=== PATIENT | female | born 1945 | race African-American/Black ===

== ENCOUNTER 2017-08-21 12:32 | Inpatient (IN) | payer OTHER ==
[2017-08-21 13:39] LABS: ADD MAN DIFF? NO
[2017-08-21 13:44] LABS: BASO # 0.1 x10^3/uL (0.0-0.2); BASO % 1 % (0-3); EOS # 0.3 x10^3/uL (0.0-0.7); EOS % 3 % (0-3); HEMATOCRIT 25.8 % (36.0-47.0); HEMOGLOBIN 8.5 g/dL (12.0-15.5); LYMPH # 3.4 x10^3/uL (1.0-4.8); LYMPH % 31 % (24-48); MEAN CORPUSCULAR HEMOGLOBIN 26 pg (25-35); MEAN CORPUSCULAR HGB CONC 33 g/dL (31-37); MEAN CORPUSCULAR VOLUME 79 fL (79-100); MONO # 0.6 x10^3/uL (0.0-1.1); MONO % 6 % (0-9); NEUT # 6.6 x10^3uL (1.8-7.7); NEUT % 60 % (31-73); PLATELET COUNT 466 x10^3/uL (140-400); RED BLOOD COUNT 3.25 x10^6/uL (3.50-5.40); RED CELL DISTRIBUTION WIDTH 15.1 % (11.5-14.5)
[2017-08-21] MEDS: VANCOMYCIN PER PHARMACY MC ×2 (13:45→21:20)
[2017-08-21 13:50] LABS: ANION GAP 4 (6-14); BLOOD UREA NITROGEN 20 mg/dL (7-20); BUN/CREATININE RATIO 15 (6-20); CALCIUM 9.3 mg/dL (8.5-10.1); CARBON DIOXIDE 28 mmol/L (21-32); CHLORIDE 102 mmol/L (98-107); CREATININE 1.3 mg/dL (0.6-1.0); GFR 48.4; GLUCOSE 234 mg/dL (70-99); SODIUM 134 mmol/L (136-145)
[2017-08-21 13:56] LABS: ALBUMIN 1.9 g/dL (3.4-5.0); ALBUMIN/GLOBULIN RATIO 0.3 (1.0-1.7); ALK PHOS 117 U/L (46-116); ALT (SGPT) 11 U/L (14-59); AST (SGOT) 11 U/L (15-37); TOTAL BILIRUBIN 0.2 mg/dL (0.2-1.0); TOTAL PROTEIN 8.9 g/dL (6.4-8.2)
[2017-08-21 13:59] LABS: LACTIC ACID 0.6 mmol/L (0.4-2.0)
[2017-08-21] MEDS ORDERED: CEFEPIME HCL 2 GM in IV DEXTROSE 5% 100 ML IV (14:00)
[2017-08-21] MEDS ORDERED: fentaNYL PF VIAL 100 MCG/2 ML VIAL IV (14:15)
[2017-08-21] MEDS: CEFEPIME HCL IV Push 2 GM VIAL. IVP ×2 (14:16→21:34)
[2017-08-21] MEDS: VANCOMYCIN 2 GM in IV 1/2 NORMAL SALINE 500 ML IV (14:17)
[2017-08-21] MEDS: hydrALAZINE 20 MG/ML VIAL. IVP (18:24)
[2017-08-21] MEDS: IV NORMAL SALINE 1000ML BAG 1,000 ML IV (21:04)
[2017-08-22 00:30] LABS: BILIRUBIN,URINE NEGATIVE (NEG); CLARITY,URINE CLEAR; COLOR,URINE YELLOW; GLUCOSE,URINE 500 mg/dL (NEG); NITRITE,URINE NEGATIVE (NEG); PH,URINE 7.5; PROTEIN,URINE 100 mg/dL (NEG-TRACE); UROBILINOGEN,URINE 0.2 mg/dL (0.2 mg/dL)
[2017-08-22 00:38] LABS: BACTERIA,URINE MODERATE /HPF (0-FEW); WBC,URINE >40 /HPF (0-4)
[2017-08-22 00:39] LABS: SQUAMOUS EPITHELIAL CELL,UR FEW /LPF
[2017-08-22] MEDS: hydrALAZINE 20 MG/ML VIAL. IVP (04:46)
[2017-08-22 05:26] LABS: ADD MAN DIFF? NO
[2017-08-22 05:36] LABS: BASO # 0.1 x10^3/uL (0.0-0.2); BASO % 1 % (0-3); EOS # 0.3 x10^3/uL (0.0-0.7); EOS % 3 % (0-3); HEMATOCRIT 25.9 % (36.0-47.0); HEMOGLOBIN 8.5 g/dL (12.0-15.5); LYMPH # 1.6 x10^3/uL (1.0-4.8); LYMPH % 17 % (24-48); MEAN CORPUSCULAR HEMOGLOBIN 26 pg (25-35); MEAN CORPUSCULAR HGB CONC 33 g/dL (31-37); MEAN CORPUSCULAR VOLUME 80 fL (79-100); MONO # 0.6 x10^3/uL (0.0-1.1); MONO % 7 % (0-9); NEUT # 6.7 x10^3uL (1.8-7.7); NEUT % 72 % (31-73); PLATELET COUNT 456 x10^3/uL (140-400); RED BLOOD COUNT 3.25 x10^6/uL (3.50-5.40); RED CELL DISTRIBUTION WIDTH 15.1 % (11.5-14.5); WHITE BLOOD COUNT 9.3 x10^3/uL (4.0-11.0)
[2017-08-22] MEDS: CEFEPIME HCL IV Push 2 GM VIAL. IVP (06:19)
[2017-08-22 06:50] LABS: ALBUMIN 1.7 g/dL (3.4-5.0); ALBUMIN/GLOBULIN RATIO 0.3 (1.0-1.7); ALK PHOS 108 U/L (46-116); ALT (SGPT) 9 U/L (14-59); ANION GAP 7 (6-14); AST (SGOT) 11 U/L (15-37); BLOOD UREA NITROGEN 18 mg/dL (7-20); BUN/CREATININE RATIO 15 (6-20); CALCIUM 8.4 mg/dL (8.5-10.1); CARBON DIOXIDE 26 mmol/L (21-32); CHLORIDE 102 mmol/L (98-107); CREATININE 1.2 mg/dL (0.6-1.0); GFR 53.1; GLUCOSE 222 mg/dL (70-99); POTASSIUM 3.8 mmol/L (3.5-5.1); SODIUM 135 mmol/L (136-145); TOTAL BILIRUBIN 0.3 mg/dL (0.2-1.0); TOTAL PROTEIN 8.3 g/dL (6.4-8.2)
[2017-08-22 08:02] LABS: POC GLUCOSE 204 mg/dL (70-99)
[2017-08-22] MEDS: ONDANSETRON PF 4 MG/2 ML VIAL. IV (08:30)
[2017-08-22] MEDS: IV NORMAL SALINE 1000ML BAG 1,000 ML IV ×2 (08:43→17:00)
[2017-08-22] MEDS: ENOXAPARIN 40 MG/0.4 ML SYRINGE. SQ (08:44)
[2017-08-22] MEDS: INSULIN LISPRO 300 UNITS/3 ML INSULN.PEN. SQ ×3 (08:44→17:00)
[2017-08-22 12:01] LABS: POC GLUCOSE 224 mg/dL (70-99)
[2017-08-22] MEDS: PIPERACILLIN/TAZOBACTAM 3.375 GM in IV NORMAL SALINE 50ML 50 ML IV ×2 (13:09→20:38)
[2017-08-22] MEDS ORDERED: MORPHINE SULFATE 4 MG/ML DISP.SYRIN. IV ×2 (13:15→18:45)
[2017-08-22] MEDS ORDERED: PROCHLORPERAZINE 10 MG/2 ML VIAL. IV (13:15)
[2017-08-22] MEDS ORDERED: LIDOCAINE 1% PF 2 ML VIAL. ID (13:15)
[2017-08-22] MEDS ORDERED: fentaNYL PF VIAL 100 MCG/2 ML VIAL IV (13:15)
[2017-08-22] MEDS ORDERED: ONDANSETRON PF 4 MG/2 ML VIAL. IV ×2 (13:15→15:00)
[2017-08-22 13:31] LABS: POC GLUCOSE 186 mg/dL (70-99)
[2017-08-22] MEDS ORDERED: LIDOCAINE 2% PF Vial for OR 5 ML VIAL. (13:36)
[2017-08-22] MEDS ORDERED: fentaNYL PF VIAL 100 MCG/2 ML VIAL (13:36)
[2017-08-22] MEDS ORDERED: PROPOFOL 20 ML IV (13:36)
[2017-08-22] MEDS: VANCOMYCIN 1.5 GM in IV 1/2 NORMAL SALINE 500 ML IV (14:01)
[2017-08-22] MEDS ORDERED: DOCUSATE SODIUM 100 MG CAPSULE. PO (15:00)
[2017-08-22] MEDS ORDERED: traMADol 50 MG TABLET PO (15:00)
[2017-08-22] MEDS ORDERED: MORPHINE SULFATE 2 MG/ML DISP.SYRIN. IV ×2 (15:00→18:45)
[2017-08-22] MEDS ORDERED: SEVOFLURANE 31 TO 60 MINUTES. IH (15:07)
[2017-08-22] MEDS ORDERED: PHENYLEPHRINE in 0.9% NACL PF 1 MG/10 ML SYRINGE. IV (15:26)
[2017-08-22] MEDS: amLODIPine BESYLATE 5 MG TABLET PO (16:00)
[2017-08-22 16:35] LABS: PLATELET COUNT 374 x10^3/uL (140-400); WHITE BLOOD COUNT 10.7 x10^3/uL (4.0-11.0)
[2017-08-22 16:38] LABS: HEMATOCRIT 19.7 % (36.0-47.0); HEMOGLOBIN 6.5 g/dL (12.0-15.5)
[2017-08-22 16:50] LABS: POC GLUCOSE 186 mg/dL (70-99)
[2017-08-22] MEDS: IV RINGERS,LACTATED 1000ML 1,000 ML IV (16:52)
[2017-08-22] MEDS: fentaNYL PF VIAL 100 MCG/2 ML VIAL IV ×2 (16:56→18:05)
[2017-08-22] MEDS: GLIMEPIRIDE 2 MG TABLET. PO (17:00)
[2017-08-22] MEDS: VANCOMYCIN PER PHARMACY MC (18:02)
[2017-08-22] MEDS ORDERED: HYDROcodone/APAP 10/325 1 TAB TABLET PO ×2 (18:45)
[2017-08-22] MEDS: MORPHINE SULFATE 4 MG/ML DISP.SYRIN. IV (20:38)
[2017-08-22 20:53] LABS: POC GLUCOSE 219 mg/dL (70-99)
[2017-08-22] MEDS: LACTOBACILLUS RHAMNOSUS GG 1 CAPSULE. PO (21:00)
[2017-08-22 23:42] LABS: IMMEDIATE SPIN CROSSMATCH 1 3
[2017-08-23] MEDS: IV NORMAL SALINE 1000ML BAG 1,000 ML IV ×3 (03:00→20:58)
[2017-08-23] MEDS: PIPERACILLIN/TAZOBACTAM 3.375 GM in IV NORMAL SALINE 50ML 50 ML IV ×3 (04:07→23:27)
[2017-08-23 04:37] LABS: ADD MAN DIFF? NO
[2017-08-23 04:46] LABS: BASO # 0.1 x10^3/uL (0.0-0.2); BASO % 1 % (0-3); EOS # 0.2 x10^3/uL (0.0-0.7); EOS % 2 % (0-3); HEMATOCRIT 25.4 % (36.0-47.0); HEMOGLOBIN 8.3 g/dL (12.0-15.5); LYMPH # 1.6 x10^3/uL (1.0-4.8); LYMPH % 13 % (24-48); MEAN CORPUSCULAR HEMOGLOBIN 27 pg (25-35); MEAN CORPUSCULAR HGB CONC 33 g/dL (31-37); MEAN CORPUSCULAR VOLUME 82 fL (79-100); MONO # 0.6 x10^3/uL (0.0-1.1); MONO % 5 % (0-9); NEUT # 9.6 x10^3uL (1.8-7.7); NEUT % 79 % (31-73); PLATELET COUNT 334 x10^3/uL (140-400); RED BLOOD COUNT 3.09 x10^6/uL (3.50-5.40); RED CELL DISTRIBUTION WIDTH 15.4 % (11.5-14.5); WHITE BLOOD COUNT 12.2 x10^3/uL (4.0-11.0)
[2017-08-23 04:53] LABS: ANION GAP 11 (6-14); BLOOD UREA NITROGEN 16 mg/dL (7-20); CALCIUM 8.3 mg/dL (8.5-10.1); CARBON DIOXIDE 23 mmol/L (21-32); CHLORIDE 103 mmol/L (98-107); CREATININE 1.2 mg/dL (0.6-1.0); GFR 53.1; GLUCOSE 221 mg/dL (70-99); POTASSIUM 4.3 mmol/L (3.5-5.1); SODIUM 137 mmol/L (136-145)
[2017-08-23 06:18] LABS: POC GLUCOSE 225 mg/dL (70-99)
[2017-08-23] MEDS: GLIMEPIRIDE 2 MG TABLET. PO ×3 (08:00→17:00)
[2017-08-23 08:09] LABS: POC GLUCOSE 203 mg/dL (70-99)
[2017-08-23] MEDS: LACTOBACILLUS RHAMNOSUS GG 1 CAPSULE. PO ×3 (09:00→21:00)
[2017-08-23] MEDS: amLODIPine BESYLATE 5 MG TABLET PO ×2 (09:00→12:50)
[2017-08-23] MEDS: ASPIRIN CHEWABLE 81 MG TABLET. PO ×2 (09:00→12:50)
[2017-08-23] MEDS: INSULIN LISPRO 300 UNITS/3 ML INSULN.PEN. SQ ×3 (09:02→17:00)
[2017-08-23] MEDS ORDERED: LIDOCAINE WITH 8.4% SOD BICARB 3 ML DISP.SYRIN. (10:25)
[2017-08-23] MEDS: AMOXICILLIN/K CLAV 875/125MG TABLET. PO ×2 (11:00→12:50)
[2017-08-23] MEDS: LIDOCAINE WITH 8.4% SOD BICARB 3 ML DISP.SYRIN. INJ (11:11)
[2017-08-23 11:40] LABS: POC GLUCOSE 199 mg/dL (70-99)
[2017-08-23] MEDS: ENOXAPARIN 40 MG/0.4 ML SYRINGE. SQ (12:51)
[2017-08-23 16:57] LABS: POC GLUCOSE 155 mg/dL (70-99)
[2017-08-23] MEDS: MORPHINE SULFATE 4 MG/ML DISP.SYRIN. IV (17:33)
[2017-08-23 22:25] LABS: POC GLUCOSE 140 mg/dL (70-99)
[2017-08-24 01:16] LABS: HEMOGLOBIN A1C 9.3 % (4.8-5.6)
[2017-08-24] MEDS: hydrALAZINE 20 MG/ML VIAL. IVP (04:16)
[2017-08-24] MEDS: PIPERACILLIN/TAZOBACTAM 3.375 GM in IV NORMAL SALINE 50ML 50 ML IV ×4 (05:45→23:07)
[2017-08-24 07:48] LABS: POC GLUCOSE 160 mg/dL (70-99)
[2017-08-24] MEDS: GLIMEPIRIDE 2 MG TABLET. PO (08:00)
[2017-08-24] MEDS: INSULIN LISPRO 300 UNITS/3 ML INSULN.PEN. SQ ×3 (08:00→17:00)
[2017-08-24] MEDS: IV NORMAL SALINE 1000ML BAG 1,000 ML IV ×2 (08:53→23:07)
[2017-08-24] MEDS: LACTOBACILLUS RHAMNOSUS GG 1 CAPSULE. PO ×2 (09:00→19:56)
[2017-08-24] MEDS: ASPIRIN CHEWABLE 81 MG TABLET. PO (09:00)
[2017-08-24] MEDS: ENOXAPARIN 40 MG/0.4 ML SYRINGE. SQ (09:00)
[2017-08-24] MEDS: amLODIPine BESYLATE 10 MG TABLET PO (09:00)
[2017-08-24 10:14] LABS: ADD MAN DIFF? NO
[2017-08-24 10:26] LABS: BASO # 0.1 x10^3/uL (0.0-0.2); BASO % 1 % (0-3); EOS # 0.3 x10^3/uL (0.0-0.7); EOS % 3 % (0-3); HEMATOCRIT 21.1 % (36.0-47.0); LYMPH % 19 % (24-48); MEAN CORPUSCULAR HEMOGLOBIN 27 pg (25-35); MEAN CORPUSCULAR HGB CONC 33 g/dL (31-37); MEAN CORPUSCULAR VOLUME 82 fL (79-100); MONO # 0.8 x10^3/uL (0.0-1.1); MONO % 7 % (0-9); NEUT # 7.2 x10^3uL (1.8-7.7); NEUT % 69 % (31-73); PLATELET COUNT 312 x10^3/uL (140-400); RED BLOOD COUNT 2.57 x10^6/uL (3.50-5.40); RED CELL DISTRIBUTION WIDTH 15.6 % (11.5-14.5); WHITE BLOOD COUNT 10.4 x10^3/uL (4.0-11.0)
[2017-08-24 10:40] LABS: ALBUMIN 1.6 g/dL (3.4-5.0); ALBUMIN/GLOBULIN RATIO 0.3 (1.0-1.7); ALK PHOS 85 U/L (46-116); ALT (SGPT) 8 U/L (14-59); ANION GAP 6 (6-14); AST (SGOT) 13 U/L (15-37); BLOOD UREA NITROGEN 11 mg/dL (7-20); BUN/CREATININE RATIO 8 (6-20); CALCIUM 8.2 mg/dL (8.5-10.1); CARBON DIOXIDE 27 mmol/L (21-32); CHLORIDE 105 mmol/L (98-107); CREATININE 1.3 mg/dL (0.6-1.0); GFR 48.4; GLUCOSE 162 mg/dL (70-99); POTASSIUM 3.4 mmol/L (3.5-5.1); SODIUM 138 mmol/L (136-145); TOTAL BILIRUBIN 0.4 mg/dL (0.2-1.0); TOTAL PROTEIN 7.3 g/dL (6.4-8.2)
[2017-08-24 11:44] LABS: POC GLUCOSE 153 mg/dL (70-99)
[2017-08-24 12:19] LABS: ALBUM 2.1 g/dL (2.9-4.4); ALPHA 1 0.3 g/dL (0.0-0.4); ALPHA 2 1.1 g/dL (0.4-1.0); BETA 1.2 g/dL (0.7-1.3); GAMMA 2.7 g/dL (0.4-1.8); M-SPIKE Not Observed g/dL (Not Observed); PROTEIN TOTAL 7.4 g/dL (6.0-8.5); SPEP AG RATIO 0.4 (0.7-1.7)
[2017-08-24 14:40] LABS: THYROID STIM HORMONE (TSH) 1.099 uIU/mL (0.358-3.74)
[2017-08-24 14:42] LABS: VITAMIN-B12 595 pg/mL (247-911)
[2017-08-24 16:10] LABS: POC GLUCOSE 139 mg/dL (70-99)
[2017-08-24] MEDS: CALCIUM CARBONATE 500 MG TABLET PO (17:00)
[2017-08-24] MEDS: CHOLECALCIFEROL (VITAMIN D3) 5,000 UNIT CAPSULE PO (17:44)
[2017-08-24 20:13] LABS: BARBITURATES NEG (NEG); BENZODIAZEPINES NEG (NEG); CANNABINOIDS NEG (NEG); COCAINE NEG (NEG); METHADONE NEG (NEG); OPIATES NEG (NEG); PHENCYCLIDINE NEG (NEG)
[2017-08-24 20:16] LABS: AMPHETAMINE/METHAMPHETAMINE NEG (NEG)
[2017-08-24 20:17] LABS: ETHANOL, URINE NEG (NEG)
[2017-08-24 20:53] LABS: POC GLUCOSE 128 mg/dL (70-99)
[2017-08-25] MEDS: PIPERACILLIN/TAZOBACTAM 3.375 GM in IV NORMAL SALINE 50ML 50 ML IV (05:04)
[2017-08-25 06:37] LABS: ADD MAN DIFF? NO
[2017-08-25 06:57] LABS: ANION GAP 9 (6-14); BASO # 0.1 x10^3/uL (0.0-0.2); BASO % 1 % (0-3); BLOOD UREA NITROGEN 10 mg/dL (7-20); CARBON DIOXIDE 27 mmol/L (21-32); CHLORIDE 107 mmol/L (98-107); CREATININE 1.2 mg/dL (0.6-1.0); EOS # 0.3 x10^3/uL (0.0-0.7); EOS % 4 % (0-3); GFR 53.1; GLUCOSE 136 mg/dL (70-99); LYMPH # 1.8 x10^3/uL (1.0-4.8); LYMPH % 22 % (24-48); MEAN CORPUSCULAR HEMOGLOBIN 28 pg (25-35); MEAN CORPUSCULAR HGB CONC 34 g/dL (31-37); MEAN CORPUSCULAR VOLUME 82 fL (79-100); MONO # 0.8 x10^3/uL (0.0-1.1); MONO % 9 % (0-9); NEUT # 5.3 x10^3uL (1.8-7.7); NEUT % 64 % (31-73); PLATELET COUNT 307 x10^3/uL (140-400); POTASSIUM 3.3 mmol/L (3.5-5.1); RED BLOOD COUNT 2.34 x10^6/uL (3.50-5.40); RED CELL DISTRIBUTION WIDTH 15.6 % (11.5-14.5); SODIUM 143 mmol/L (136-145); WHITE BLOOD COUNT 8.3 x10^3/uL (4.0-11.0)
[2017-08-25 07:02] LABS: CHOLESTEROL 145 mg/dL (0-200); HDLC 45 mg/dL (40-60); LDLC 86 mg/dL (0-100); NON-HDL CHOLESTEROL 100 mg/dL (0-129); TRIGLYCERIDES 70 mg/dL (0-150); VLDLC 14 mg/dL (0-40)
[2017-08-25 07:04] LABS: CHOLESTEROL/HDL RATIO 3.2
[2017-08-25 07:16] LABS: HEMATOCRIT 19.2 % (36.0-47.0); HEMOGLOBIN 6.4 g/dL (12.0-15.5)
[2017-08-25] MEDS: INSULIN LISPRO 300 UNITS/3 ML INSULN.PEN. SQ ×3 (08:00→17:00)
[2017-08-25 08:37] LABS: POC GLUCOSE 132 mg/dL (70-99)
[2017-08-25] MEDS: ASPIRIN CHEWABLE 81 MG TABLET. PO (09:00)
[2017-08-25] MEDS: ENOXAPARIN 40 MG/0.4 ML SYRINGE. SQ (09:00)
[2017-08-25] MEDS: AMOXICILLIN/K CLAV 875/125MG TABLET. PO ×2 (09:01→21:28)
[2017-08-25] MEDS: LACTOBACILLUS RHAMNOSUS GG 1 CAPSULE. PO ×2 (09:01→21:28)
[2017-08-25] MEDS: CHOLECALCIFEROL (VITAMIN D3) 5,000 UNIT CAPSULE PO (09:01)
[2017-08-25] MEDS: CALCIUM CARBONATE 500 MG TABLET PO (09:01)
[2017-08-25] MEDS: amLODIPine BESYLATE 10 MG TABLET PO (09:01)
[2017-08-25] MEDS: hydrALAZINE 20 MG/ML VIAL. IVP (09:03)
[2017-08-25] MEDS: POTASSIUM CHLORIDE 20 MEQ TABLET.ER. PO (09:16)
[2017-08-25 11:53] LABS: POC GLUCOSE 213 mg/dL (70-99)
[2017-08-25 16:44] LABS: POC GLUCOSE 210 mg/dL (70-99)
[2017-08-26 05:48] LABS: ADD MAN DIFF? NO
[2017-08-26 05:57] LABS: BASO # 0.1 x10^3/uL (0.0-0.2); BASO % 1 % (0-3); EOS # 0.3 x10^3/uL (0.0-0.7); EOS % 3 % (0-3); HEMATOCRIT 23.3 % (36.0-47.0); HEMOGLOBIN 7.7 g/dL (12.0-15.5); LYMPH # 1.8 x10^3/uL (1.0-4.8); LYMPH % 19 % (24-48); MEAN CORPUSCULAR HEMOGLOBIN 28 pg (25-35); MEAN CORPUSCULAR HGB CONC 33 g/dL (31-37); MEAN CORPUSCULAR VOLUME 84 fL (79-100); MONO # 0.9 x10^3/uL (0.0-1.1); MONO % 9 % (0-9); NEUT # 6.6 x10^3uL (1.8-7.7); NEUT % 68 % (31-73); PLATELET COUNT 323 x10^3/uL (140-400); RED BLOOD COUNT 2.77 x10^6/uL (3.50-5.40); RED CELL DISTRIBUTION WIDTH 15.9 % (11.5-14.5); WHITE BLOOD COUNT 9.7 x10^3/uL (4.0-11.0)
[2017-08-26 06:28] LABS: BLOOD UREA NITROGEN 17 mg/dL (7-20); CALCIUM 8.4 mg/dL (8.5-10.1); CARBON DIOXIDE 28 mmol/L (21-32); CHLORIDE 104 mmol/L (98-107); CREATININE 1.5 mg/dL (0.6-1.0); GFR 41.1; GLUCOSE 218 mg/dL (70-99); POTASSIUM 3.7 mmol/L (3.5-5.1)
[2017-08-26 06:42] LABS: ANION GAP 5 (6-14); SODIUM 137 mmol/L (136-145)
[2017-08-26 07:14] LABS: POC GLUCOSE 256 mg/dL (70-99)
[2017-08-26 07:28] LABS: POC GLUCOSE 194 mg/dL (70-99)
[2017-08-26] MEDS: AMOXICILLIN/K CLAV 875/125MG TABLET. PO ×2 (08:50→21:17)
[2017-08-26] MEDS: CHOLECALCIFEROL (VITAMIN D3) 5,000 UNIT CAPSULE PO (08:50)
[2017-08-26] MEDS: ASPIRIN CHEWABLE 81 MG TABLET. PO (08:50)
[2017-08-26] MEDS: CALCIUM CARBONATE 500 MG TABLET PO (08:50)
[2017-08-26] MEDS: amLODIPine BESYLATE 10 MG TABLET PO (08:51)
[2017-08-26] MEDS: LACTOBACILLUS RHAMNOSUS GG 1 CAPSULE. PO ×2 (08:51→21:17)
[2017-08-26] MEDS: INSULIN LISPRO 300 UNITS/3 ML INSULN.PEN. SQ ×3 (08:53→16:50)
[2017-08-26] MEDS: ENOXAPARIN 40 MG/0.4 ML SYRINGE. SQ (08:59)
[2017-08-26] MEDS: hydrALAZINE 20 MG/ML VIAL. IVP (09:02)
[2017-08-26] MEDS: GLIMEPIRIDE 2 MG TABLET. PO (10:46)
[2017-08-26 11:19] LABS: POC GLUCOSE 178 mg/dL (70-99)
[2017-08-26 16:49] LABS: POC GLUCOSE 105 mg/dL (70-99)
[2017-08-26] MEDS: CARVEDILOL 6.25 MG TABLET. PO (16:57)
[2017-08-26 21:20] LABS: POC GLUCOSE 133 mg/dL (70-99)
[2017-08-27 03:44] LABS: ADD MAN DIFF? NO
[2017-08-27 04:11] LABS: BASO % 1 % (0-3); EOS # 0.4 x10^3/uL (0.0-0.7); EOS % 4 % (0-3); HEMATOCRIT 22.3 % (36.0-47.0); HEMOGLOBIN 7.6 g/dL (12.0-15.5); LYMPH % 22 % (24-48); MEAN CORPUSCULAR HEMOGLOBIN 29 pg (25-35); MEAN CORPUSCULAR HGB CONC 34 g/dL (31-37); MEAN CORPUSCULAR VOLUME 84 fL (79-100); MONO # 0.8 x10^3/uL (0.0-1.1); MONO % 8 % (0-9); NEUT # 5.9 x10^3uL (1.8-7.7); NEUT % 64 % (31-73); PLATELET COUNT 327 x10^3/uL (140-400); RED BLOOD COUNT 2.64 x10^6/uL (3.50-5.40); RED CELL DISTRIBUTION WIDTH 16.2 % (11.5-14.5); WHITE BLOOD COUNT 9.1 x10^3/uL (4.0-11.0)
[2017-08-27 04:21] LABS: ANION GAP 7 (6-14); BLOOD UREA NITROGEN 15 mg/dL (7-20); CALCIUM 8.6 mg/dL (8.5-10.1); CARBON DIOXIDE 27 mmol/L (21-32); CHLORIDE 102 mmol/L (98-107); CREATININE 1.6 mg/dL (0.6-1.0); GFR 38.1; GLUCOSE 103 mg/dL (70-99); POTASSIUM 3.7 mmol/L (3.5-5.1); SODIUM 136 mmol/L (136-145)
[2017-08-27] MEDS: ACETAMINOPHEN 325 MG TABLET. PO (04:56)
[2017-08-27] MEDS: INSULIN LISPRO 300 UNITS/3 ML INSULN.PEN. SQ ×3 (08:00→17:00)
[2017-08-27 08:12] LABS: POC GLUCOSE 84 mg/dL (70-99)
[2017-08-27] MEDS: LACTOBACILLUS RHAMNOSUS GG 1 CAPSULE. PO ×2 (10:13→20:07)
[2017-08-27] MEDS: amLODIPine BESYLATE 10 MG TABLET PO (10:13)
[2017-08-27] MEDS: ASPIRIN CHEWABLE 81 MG TABLET. PO (10:13)
[2017-08-27] MEDS: CHOLECALCIFEROL (VITAMIN D3) 5,000 UNIT CAPSULE PO (10:13)
[2017-08-27] MEDS: GLIMEPIRIDE 2 MG TABLET. PO (10:13)
[2017-08-27] MEDS: AMOXICILLIN/K CLAV 875/125MG TABLET. PO (10:13)
[2017-08-27] MEDS: CALCIUM CARBONATE 500 MG TABLET PO (10:13)
[2017-08-27] MEDS: CARVEDILOL 6.25 MG TABLET. PO ×2 (10:14→17:00)
[2017-08-27] MEDS: ENOXAPARIN 40 MG/0.4 ML SYRINGE. SQ (10:14)
[2017-08-27 11:18] LABS: POC GLUCOSE 88 mg/dL (70-99)
[2017-08-27] MEDS: PIPERACILLIN/TAZOBACTAM 2.25 GM in IV NORMAL SALINE 50ML 50 ML IV ×2 (13:55→17:52)
[2017-08-27] MEDS: AMINO AC 3%/ELECTROLYTE/GLYCER 1,000 ML IV (13:56)
[2017-08-27 17:19] LABS: POC GLUCOSE 94 mg/dL (70-99)
[2017-08-27 21:12] LABS: POC GLUCOSE 84 mg/dL (70-99)
[2017-08-28] MEDS: PIPERACILLIN/TAZOBACTAM 2.25 GM in IV NORMAL SALINE 50ML 50 ML IV ×4 (00:11→18:09)
[2017-08-28 01:11] LABS: POC GLUCOSE 65 mg/dL (70-99)
[2017-08-28] MEDS: DEXTROSE 50% 25 GM / 50ML DISP.SYRIN. IV ×2 (01:16→07:32)
[2017-08-28 01:32] LABS: POC GLUCOSE 113 mg/dL (70-99)
[2017-08-28 02:53] LABS: POC GLUCOSE 84 mg/dL (70-99)
[2017-08-28 04:56] LABS: POC GLUCOSE 79 mg/dL (70-99)
[2017-08-28] MEDS ORDERED: VANCOMYCIN 1 GM in IV DEXTROSE 5% 250 ML IV (05:30)
[2017-08-28] MEDS: ACETAMINOPHEN 650 MG SUPP.RECT. PR (05:40)
[2017-08-28] MEDS: AMINO AC 3%/ELECTROLYTE/GLYCER 1,000 ML IV (05:45)
[2017-08-28] MEDS: FLUCONAZOLE 100MG/50ML PREMIX 50 ML IV (06:40)
[2017-08-28 06:42] LABS: POC GLUCOSE 70 mg/dL (70-99)
[2017-08-28] MEDS: VANCOMYCIN 2 GM in IV 1/2 NORMAL SALINE 500 ML IV (07:32)
[2017-08-28] MEDS: INSULIN LISPRO 300 UNITS/3 ML INSULN.PEN. SQ ×3 (08:00→18:11)
[2017-08-28] MEDS: CARVEDILOL 6.25 MG TABLET. PO ×2 (08:00→17:00)
[2017-08-28 08:05] LABS: POC GLUCOSE 123 mg/dL (70-99)
[2017-08-28] MEDS: LACTOBACILLUS RHAMNOSUS GG 1 CAPSULE. PO ×2 (08:57→19:41)
[2017-08-28] MEDS: amLODIPine BESYLATE 10 MG TABLET PO (08:57)
[2017-08-28] MEDS: CALCIUM CARBONATE 500 MG TABLET PO (08:57)
[2017-08-28] MEDS: ASPIRIN CHEWABLE 81 MG TABLET. PO (08:57)
[2017-08-28] MEDS: CHOLECALCIFEROL (VITAMIN D3) 5,000 UNIT CAPSULE PO (08:57)
[2017-08-28] MEDS: ENOXAPARIN 40 MG/0.4 ML SYRINGE. SQ (10:02)
[2017-08-28] MEDS: NYSTATIN TOPICAL POWDER 15GM BOTTLE. TP ×2 (10:02→21:00)
[2017-08-28 10:14] LABS: POC GLUCOSE 91 mg/dL (70-99)
[2017-08-28] MEDS: POTASSIUM CL 30MEQ D5-0.45NACL 1,000 ML IV (11:31)
[2017-08-28] MEDS: ERGOCALCIFEROL (VITAMIN D2) 50,000 UNIT CAPSULE. PO (11:32)
[2017-08-28] MEDS: MORPHINE SULFATE 4 MG/ML DISP.SYRIN. IV (11:36)
[2017-08-28] MEDS: IPRATRPIUM/ALBUTEROL 0.5/2.5MG 3 ML NEBU. NEB ×3 (12:00→19:59)
[2017-08-28 14:03] LABS: POC GLUCOSE 90 mg/dL (70-99)
[2017-08-28] MEDS: VANCOMYCIN PER PHARMACY MC ×3 (15:16→16:36)
[2017-08-28 18:27] LABS: POC GLUCOSE 100 mg/dL (70-99)
[2017-08-28 20:48] LABS: POC GLUCOSE 92 mg/dL (70-99)
[2017-08-29] MEDS: POTASSIUM CL 30MEQ D5-0.45NACL 1,000 ML IV (00:03)
[2017-08-29 01:34] LABS: POC GLUCOSE 101 mg/dL (70-99)
[2017-08-29 02:03] LABS: ADD MAN DIFF? NO
[2017-08-29 02:05] LABS: BASO % 0 % (0-3); EOS # 0.5 x10^3/uL (0.0-0.7); EOS % 5 % (0-3); HEMATOCRIT 21.5 % (36.0-47.0); HEMOGLOBIN 7.3 g/dL (12.0-15.5); LYMPH # 2.3 x10^3/uL (1.0-4.8); LYMPH % 23 % (24-48); MEAN CORPUSCULAR HEMOGLOBIN 28 pg (25-35); MEAN CORPUSCULAR HGB CONC 34 g/dL (31-37); MEAN CORPUSCULAR VOLUME 84 fL (79-100); MONO # 0.8 x10^3/uL (0.0-1.1); MONO % 8 % (0-9); NEUT # 6.6 x10^3uL (1.8-7.7); NEUT % 65 % (31-73); PLATELET COUNT 353 x10^3/uL (140-400); RED BLOOD COUNT 2.57 x10^6/uL (3.50-5.40); RED CELL DISTRIBUTION WIDTH 16.5 % (11.5-14.5); WHITE BLOOD COUNT 10.2 x10^3/uL (4.0-11.0)
[2017-08-29 02:24] LABS: CREATININE 1.4 mg/dL (0.6-1.0)
[2017-08-29 02:24] LABS: GFR 44.5
[2017-08-29 03:18] LABS: SEDIMENTATION RATE > 130 (0-25)
[2017-08-29] MEDS: PIPERACILLIN/TAZOBACTAM 2.25 GM in IV NORMAL SALINE 50ML 50 ML IV ×4 (05:18→18:16)
[2017-08-29 05:45] LABS: POC GLUCOSE 116 mg/dL (70-99)
[2017-08-29] MEDS: FLUCONAZOLE 100MG/50ML PREMIX 50 ML IV (06:14)
[2017-08-29] MEDS: IPRATRPIUM/ALBUTEROL 0.5/2.5MG 3 ML NEBU. NEB ×4 (07:31→19:49)
[2017-08-29] MEDS: VANCOMYCIN 1.25 GM in IV DEXTROSE 5 %-0.2 % NACL 250 ML IV (07:57)
[2017-08-29] MEDS: CARVEDILOL 6.25 MG TABLET. PO ×2 (07:59→18:17)
[2017-08-29] MEDS: INSULIN LISPRO 300 UNITS/3 ML INSULN.PEN. SQ ×2 (08:00→22:30)
[2017-08-29] MEDS: CALCIUM CARBONATE 500 MG TABLET PO (08:00)
[2017-08-29] MEDS: amLODIPine BESYLATE 10 MG TABLET PO (08:00)
[2017-08-29] MEDS: LACTOBACILLUS RHAMNOSUS GG 1 CAPSULE. PO ×2 (08:00→21:15)
[2017-08-29] MEDS: ASPIRIN CHEWABLE 81 MG TABLET. PO (08:00)
[2017-08-29] MEDS: NYSTATIN TOPICAL POWDER 15GM BOTTLE. TP ×2 (08:01→21:15)
[2017-08-29 09:20] LABS: POC GLUCOSE 150 mg/dL (70-99)
[2017-08-29] MEDS: methylPREDNISolone SOD SUCC PF 125 MG/2 ML VIAL. IV ×3 (09:52→21:15)
[2017-08-29] MEDS: ENOXAPARIN 30 MG/0.3 ML SYRINGE. SQ (09:57)
[2017-08-29] MEDS: BUDESONIDE 0.5 MG/2 ML NEBU. NEB ×2 (11:23→19:46)
[2017-08-29 12:06] LABS: POC GLUCOSE 152 mg/dL (70-99)
[2017-08-29] MEDS: PANTOPRAZOLE IV PUSH 40 MG VIAL. IVP (12:38)
[2017-08-29 16:59] LABS: POC GLUCOSE 267 mg/dL (70-99)
[2017-08-29] MEDS ORDERED: DEXTROSE 50% 25 GM / 50ML DISP.SYRIN. IV ×2 (22:00)
[2017-08-29 23:42] LABS: POC GLUCOSE 387 mg/dL (70-99)
[2017-08-30] MEDS: hydrALAZINE 20 MG/ML VIAL. IVP (00:09)
[2017-08-30] MEDS: PIPERACILLIN/TAZOBACTAM 2.25 GM in IV NORMAL SALINE 50ML 50 ML IV ×5 (00:09→23:56)
[2017-08-30 01:50] LABS: POC GLUCOSE 446 mg/dL (70-99)
[2017-08-30 04:48] LABS: HEMATOCRIT 22.5 % (36.0-47.0); HEMOGLOBIN 7.8 g/dL (12.0-15.5); MEAN CORPUSCULAR HGB CONC 34 g/dL (31-37)
[2017-08-30 05:31] LABS: CREATININE 1.9 mg/dL (0.6-1.0)
[2017-08-30 05:31] LABS: GFR 31.3
[2017-08-30] MEDS: methylPREDNISolone SOD SUCC PF 125 MG/2 ML VIAL. IV ×3 (05:31→21:01)
[2017-08-30] MEDS: FLUCONAZOLE 100MG/50ML PREMIX 50 ML IV (05:31)
[2017-08-30] MEDS: BUDESONIDE 0.5 MG/2 ML NEBU. NEB ×2 (07:20→20:00)
[2017-08-30] MEDS: IPRATRPIUM/ALBUTEROL 0.5/2.5MG 3 ML NEBU. NEB ×4 (07:20→20:00)
[2017-08-30 07:30] LABS: POC GLUCOSE 327 mg/dL (70-99)
[2017-08-30] MEDS: PANTOPRAZOLE IV PUSH 40 MG VIAL. IVP (07:40)
[2017-08-30 08:01] LABS: VANC TR 18.7 mcg/mL (10.0-20.0)
[2017-08-30] MEDS: INSULIN LISPRO 300 UNITS/3 ML INSULN.PEN. SQ ×5 (08:15→17:19)
[2017-08-30] MEDS: VANCOMYCIN PER PHARMACY MC (08:17)
[2017-08-30] MEDS: NYSTATIN TOPICAL POWDER 15GM BOTTLE. TP ×3 (09:00→21:00)
[2017-08-30] MEDS ORDERED: VANCOMYCIN 1 GM in IV 1/2 NORMAL SALINE 250 ML IV (09:00)
[2017-08-30] MEDS: LACTOBACILLUS RHAMNOSUS GG 1 CAPSULE. PO ×2 (09:10→21:01)
[2017-08-30] MEDS: amLODIPine BESYLATE 10 MG TABLET PO (09:10)
[2017-08-30] MEDS: ASPIRIN CHEWABLE 81 MG TABLET. PO (09:10)
[2017-08-30] MEDS: CALCIUM CARBONATE 500 MG TABLET PO (09:11)
[2017-08-30] MEDS: CARVEDILOL 6.25 MG TABLET. PO ×2 (09:12→17:15)
[2017-08-30] MEDS: ENOXAPARIN 30 MG/0.3 ML SYRINGE. SQ (09:13)
[2017-08-30 10:20] LABS: ANION GAP 7 (6-14); BLOOD UREA NITROGEN 23 mg/dL (7-20); CARBON DIOXIDE 27 mmol/L (21-32); CHLORIDE 102 mmol/L (98-107); CREATININE 1.8 mg/dL (0.6-1.0); GFR 33.3; POTASSIUM 3.8 mmol/L (3.5-5.1); SODIUM 136 mmol/L (136-145)
[2017-08-30 11:11] LABS: POC GLUCOSE 376 mg/dL (70-99)
[2017-08-30] MEDS ORDERED: DEXTROSE 50% 25 GM / 50ML DISP.SYRIN. IV (11:30)
[2017-08-30 16:58] LABS: POC GLUCOSE 353 mg/dL (70-99)
[2017-08-30] MEDS ORDERED: GLIMEPIRIDE 2 MG TABLET. PO (17:00)
[2017-08-30 20:42] LABS: POC GLUCOSE 338 mg/dL (70-99)
[2017-08-30] MEDS: INSULIN GLARGINE 300 UNITS/3 ML INSULN.PEN. SQ (21:07)
[2017-08-31] MEDS: PIPERACILLIN/TAZOBACTAM 2.25 GM in IV NORMAL SALINE 50ML 50 ML IV ×3 (05:54→18:00)
[2017-08-31] MEDS: methylPREDNISolone SOD SUCC PF 125 MG/2 ML VIAL. IV (05:54)
[2017-08-31] MEDS: HEPARIN PF for SUB-Q USE 5,000 UNIT/0.5 ML VIAL. SQ ×2 (06:03→15:39)
[2017-08-31 06:26] LABS: CREATININE 1.9 mg/dL (0.6-1.0)
[2017-08-31 06:26] LABS: GFR 31.3
[2017-08-31] MEDS: IPRATRPIUM/ALBUTEROL 0.5/2.5MG 3 ML NEBU. NEB ×3 (07:22→15:15)
[2017-08-31] MEDS: BUDESONIDE 0.5 MG/2 ML NEBU. NEB (07:22)
[2017-08-31 08:01] LABS: POC GLUCOSE 318 mg/dL (70-99)
[2017-08-31] MEDS: ASPIRIN CHEWABLE 81 MG TABLET. PO (08:43)
[2017-08-31] MEDS: PANTOPRAZOLE IV PUSH 40 MG VIAL. IVP (08:43)
[2017-08-31] MEDS: LACTOBACILLUS RHAMNOSUS GG 1 CAPSULE. PO (08:44)
[2017-08-31] MEDS: CALCIUM CARBONATE 500 MG TABLET PO (08:44)
[2017-08-31] MEDS: CARVEDILOL 6.25 MG TABLET. PO ×2 (08:44→17:12)
[2017-08-31] MEDS: amLODIPine BESYLATE 10 MG TABLET PO (08:44)
[2017-08-31] MEDS: NYSTATIN TOPICAL POWDER 15GM BOTTLE. TP (08:46)
[2017-08-31] MEDS: INSULIN LISPRO 300 UNITS/3 ML INSULN.PEN. SQ ×6 (08:57→17:28)
[2017-08-31] MEDS ORDERED: CALAMINE/ZINC OXIDE TOPICAL SUSPENSION 177ML BOTTLE. TP (10:15)
[2017-08-31 11:48] LABS: POC GLUCOSE 310 mg/dL (70-99)
[2017-08-31] MEDS: predniSONE 20 MG TABLET PO (11:49)
[2017-08-31 17:20] LABS: POC GLUCOSE 215 mg/dL (70-99)
== END 2017-08-31 18:55 | DRG 616 ==
LOC: ER 12:32 → 5 SOUTH 14:28
PROC: 0Y6J0Z1 Detachment at Left Lower Leg, High, Open Approach (ICD-10-PCS; principal; 2017-08-22 14:00)
PROC: 02HV33Z Insertion of Infusion Device into Superior Vena Cava, Percutaneous Approach (ICD-10-PCS; 2017-08-22 14:49)
PROC: B5181ZA Fluoroscopy of Superior Vena Cava using Low Osmolar Contrast, Guidance (ICD-10-PCS; 2017-08-22 14:49)
PROC: B548ZZA Ultrasonography of Superior Vena Cava, Guidance (ICD-10-PCS; 2017-08-22 14:49)
PROC: 30233N1 Transfusion of Nonautologous Red Blood Cells into Peripheral Vein, Percutaneous Approach (ICD-10-PCS; 2017-08-22 14:49)
DX: E11.69 Type 2 diabetes mellitus with other specified complication (principal); J69.0 Pneumonitis due to inhalation of food and vomit; J96.90 Respiratory failure, unspecified, unspecified whether with hypoxia or hypercapnia; G93.41 Metabolic encephalopathy; N17.9 Acute kidney failure, unspecified; M86.172 Other acute osteomyelitis, left ankle and foot; I69.354 Hemiplegia and hemiparesis following cerebral infarction affecting left non-dominant side; N39.0 Urinary tract infection, site not specified; D64.9 Anemia, unspecified; E11.22 Type 2 diabetes mellitus with diabetic chronic kidney disease; E11.51 Type 2 diabetes mellitus with diabetic peripheral angiopathy without gangrene; E11.621 Type 2 diabetes mellitus with foot ulcer; Z88.8 Allergy status to other drugs, medicaments and biological substances; E11.649 Type 2 diabetes mellitus with hypoglycemia without coma; E11.65 Type 2 diabetes mellitus with hyperglycemia; E87.6 Hypokalemia; F01.50 Vascular dementia, unspecified severity, without behavioral disturbance, psychotic disturbance, mood disturbance, and anxiety; L89.529 Pressure ulcer of left ankle, unspecified stage; I12.9 Hypertensive chronic kidney disease with stage 1 through stage 4 chronic kidney disease, or unspecified chronic kidney disease; I77.1 Stricture of artery; J98.01 Acute bronchospasm; N18.3 Chronic kidney disease, stage 3 (moderate); Z74.01 Bed confinement status; Z79.4 Long term (current) use of insulin; Z83.3 Family history of diabetes mellitus; Z89.411 Acquired absence of right great toe; Z89.422 Acquired absence of other left toe(s)
CPT/HCPCS: 36415; 36569; 70450; 70551; 71045; 71250; 73630; 76770; 76937; 77001; 80048; 80051; 80053; 80061; 80202; 80307; 81001; 82306; 82565; 82607; 82962; 83036; 83605; 84165; 84443; 84520; 85014; 85018; 85025; 85027; 85651; 86850; 86900; 86901; 86920; 87040; 87086; 92526-GN; 92610-GN; 93926; 94640; 94760; 96365; 96366; 96375; 97110-GP; 97163-GP; 97166-GO; 97530-GP; 97535-GO; 99285; 99285-25; A7015; C1751; C1892; C9113; J0360; J0690; J0692; J1450; J1650; J1815; J2270; J2370; J2405; J2543; J2704; J2930; J3010; J3370; J7030; J7040; J7042; J7120; J7512; J7620; J7626; P9016

== ENCOUNTER → 2017-08-21 | Outpatient (CLI) | payer OTHER | END | disposition home or self-care (01) | LOC: PMGWOUND 11:32 | DX: E11.621 Type 2 diabetes mellitus with foot ulcer (principal); L97.521 Non-pressure chronic ulcer of other part of left foot limited to breakdown of skin; I70.202 Unspecified atherosclerosis of native arteries of extremities, left leg; E78.00 Pure hypercholesterolemia, unspecified; F32.9 Major depressive disorder, single episode, unspecified; I10 Essential (primary) hypertension; L84 Corns and callosities; G81.94 Hemiplegia, unspecified affecting left nondominant side; Z86.73 Personal history of transient ischemic attack (TIA), and cerebral infarction without residual deficits; Z79.82 Long term (current) use of aspirin | CPT/HCPCS: 99214 ==

== ENCOUNTER 2018-05-02 21:16 | Emergency (ER) | payer OTHER ==
[~2018-05-02] VITALS: Ht 170.2 cm; Wt 81.2 kg
[~2018-05-02 21:16] MED LIST: ACET325T9 PO; AMLO10TA6 PO; ASCO-185 PO; ASPI-612 PO; ASPI81TA59 PO; BUDE0.5A NEB; BUDE0.5A3 NEB; CALC500T PO; CARV6.2511 PO; CHOL100013 PO; CYAN10005 PO; DOCU-109 PO; ERGO500027 PO; FERR325T14 PO; FOLI1TAB16 PO; GLIM4TAB2 PO; HYDR-2769 PO; INSU100C SQ; INSU100I13 SQ; IPRA3AMP29 NEB; LACT1CAP21 PO; METF500T16 PO; PANT20TA2 PO; [UNRECOGNIZED DRUG - CODE] TP
--- NOTE | 2018-05-02 21:48 | PHYS DOC ---
Past Medical History Past Medical History: CVA, Diabetes-Type II, Hypertension Past Surgical History: Other Additional Past Surgical Histo: LL APUTATION Alcohol Use: None Drug Use: None Adult General Chief Complaint Chief Complaint: CATHETER CHANGE HPI HPI Patient is a 72 year old female who presents with obstructed suprapubic catheter. This started approximately 4 hours prior to arrival. Family tried to flush the suprapubic catheter with out any results. Patient reports feeling full. No blood in the urine prior to the obstruction. No increased cloudiness in the urine prior to the obstruction. Patient has had the urinary catheter for approximately 5 years with a being changed out monthly. Patient denies any fevers. Denies any nausea or vomiting.[] Review of Systems Review of Systems Constitutional: Denies fever or chills [] Eyes: Denies change in visual acuity, redness, or eye pain [] HENT: Denies nasal congestion or sore throat [] Respiratory: Denies cough or shortness of breath [] Cardiovascular: No chest pain or palpitations[] GI: Denies abdominal pain, nausea, vomiting, bloody stools or diarrhea [] : Denies dysuria or hematuria [] Musculoskeletal: Denies back pain or joint pain [] Integument: Denies rash or skin lesions [] Neurologic: Denies headache, focal weakness or sensory changes [] Endocrine: Denies polyuria or polydipsia [] All other systems were reviewed and found to be within normal limits, except as documented in this note. Current Medications Current Medications Current Medications Medications (Trade) Dose Ordered Sig/[facility] Start Time Stop Time Status Last Admin Dose Admin Lidocaine HCl (Glydo (Lidocaine) Jelly) 1 eduardo 1X ONCE 05/02/18 22:00 05/02/18 22:01 Allergies Allergies Allergies Coded Allergies Type Severity Reaction Last Updated Verified lisinopril Allergy Severe cough 08/22/17 Yes Physical Exam Physical Exam Constitutional: Well developed, well nourished, no acute distress, non-toxic appearance. [] HENT: Normocephalic, atraumatic, bilateral external ears normal, oropharynx moist, no oral exudates, nose normal. [] Eyes: PERRLA, EOMI, conjunctiva normal, no discharge. [] Neck: Normal range of motion, no tenderness, supple, no stridor. [] Cardiovascular:Heart rate regular rhythm, no murmur [] Lungs & Thorax: Bilateral breath sounds clear to auscultation [] Abdomen: Bowel sounds normal, soft, no tenderness, no masses, no pulsatile masses. [] Skin: Warm, dry, no erythema, no rash. [] Back: No tenderness, no CVA tenderness. [] Extremities: No tenderness, no cyanosis, no clubbing, ROM intact, no edema. [] Neurologic: Alert and oriented X 3, normal motor function, normal sensory function, no focal deficits noted. [] Psychologic: Affect normal, judgement normal, mood normal. [] EKG EKG [] Radiology/Procedures Radiology/Procedures [] Course & Med Decision Making Course & Med Decision Making Pertinent Labs and Imaging studies reviewed. (See chart for details) ED course: Patient arrived, was placed in bed, in tolerated exam well. Patient had her catheter replaced without any complications. She was discharged in improved condition.[] Dragon Disclaimer Dragon Disclaimer This electronic medical record was generated, in whole or in part, using a voice recognition dictation system. Departure Departure Impression: Primary Impression: Blocked suprapubic catheter Disposition: 01 HOME, SELF-CARE Condition: GOOD Referrals: CRESCENCIO MILLER WEATHERIZATION DIRECTOR (PCP) Follow-up in 2 days Patient Instructions: Suprapubic Catheter Replacement, Suprapubic Catheter Replacement, Care After Additional Instructions: Follow-up with your regular doctor in 2 days. Return to the ER if recurrent blockage of the catheter or any other concerns. Problem Qualifiers Primary Impression: Blocked suprapubic catheter Encounter type: initial encounter Qualified Codes: T83.090A - Other mechanical complication of cystostomy catheter, initial encounter NELY MORALES DO May 02, 2018 21:48
[2018-05-02] MEDS ORDERED: LIDOCAINE 2% JELLY 6ML IN APPLICATOR. MM ONE (22:00)
[2018-05-02 22:31] VITALS: BP 116/64
== END 2018-05-02 22:44 | disposition home or self-care (01) ==
LOC: ER 21:16
DX: T83.090A Other mechanical complication of cystostomy catheter, initial encounter (principal); E11.9 Type 2 diabetes mellitus without complications; I10 Essential (primary) hypertension; Z86.73 Personal history of transient ischemic attack (TIA), and cerebral infarction without residual deficits; Z88.8 Allergy status to other drugs, medicaments and biological substances; Y82.8 Other medical devices associated with adverse incidents; Y92.89 Other specified places as the place of occurrence of the external cause
CPT/HCPCS: 51705; 99284; A4314

== ENCOUNTER 2018-07-01 23:06 | Emergency (ER) | payer OTHER ==
[~2018-07-01] VITALS: Ht 162.6 cm; Wt 79.4 kg
[~2018-07-01 23:06] MED LIST changes: -AMLO10TA6 PO; +AMLO10TA8 PO; -CALC500T PO; +CALC500T31 PO
[2018-07-02 00:32] VITALS: BP 215/94
--- NOTE | 2018-07-02 00:45 | PHYS DOC ---
Past Medical History Past Medical History: CVA, Diabetes-Type II, Hypertension (MARY ANNE CARREON APRN) Past Surgical History: Other Additional Past Surgical Histo: Left BKA, SUPRAPUBIC CATHETER (MARY ANNE CARREON APRN) Alcohol Use: None Drug Use: None (MARY ANNE CARREON APRN) Adult General Chief Complaint Chief Complaint: URINE CATHETER PROBLEM HPI HPI Patient is a 72 year old female who presents with a clogged suprapubic catheter. Her daughter has tried to flush the catheter and is unable to get it to work properly. (MARY ANNE CARREON APRN) Review of Systems Review of Systems Constitutional: Denies fever or chills [] Eyes: Denies change in visual acuity, redness, or eye pain [] HENT: Denies nasal congestion or sore throat [] Respiratory: Denies cough or shortness of breath [] Cardiovascular: No additional information not addressed in HPI [] GI: Denies abdominal pain, nausea, vomiting, bloody stools or diarrhea [] : See HPI Musculoskeletal: Denies back pain or joint pain [] Integument: Denies rash or skin lesions [] Neurologic: Denies headache, focal weakness or sensory changes [] Endocrine: Denies polyuria or polydipsia [] All other systems were reviewed and found to be within normal limits, except as documented in this note. (MARY ANNE CARREON APRN) Allergies Allergies Allergies Coded Allergies Type Severity Reaction Last Updated Verified lisinopril Allergy Severe cough 08/22/17 Yes (PARISA GIBBS DO) Physical Exam Physical Exam Constitutional: Well developed, well nourished, no acute distress, non-toxic appearance. [] Lungs & Thorax: Bilateral breath sounds clear to auscultation [] Abdomen: Bowel sounds normal, soft, no tenderness, no masses, no pulsatile masses. [] Skin: no erythema to catheter site Neurologic: Alert and oriented X 3, normal motor function, normal sensory functi on, no focal deficits noted. [] Psychologic: Affect normal, judgement normal, mood normal. [] (MARY ANNE CARREON APRN) EKG EKG [] (MARY ANNE CARREON APRN) Radiology/Procedures Radiology/Procedures The catheter was switched to a new one and we had immediate urine drainage. The patient tolerated the procedure well.[] (MARY ANNE CARREON APRN) Course & Med Decision Making Course & Med Decision Making Pertinent Labs and Imaging studies reviewed. (See chart for details) [] (MARY ANNE CARREON APRN) Dragon Disclaimer Dragon Disclaimer This electronic medical record was generated, in whole or in part, using a voice recognition dictation system. (MARY ANNE CARREON APRN) Departure Departure Impression: Primary Impression: Suprapubic catheter dysfunction Disposition: HOME, SELF-CARE Condition: STABLE Referrals: CRESCENCIO MILLER STRATEGIC PLANNING CONSULTANT (PCP) Patient Instructions: Suprapubic Catheter Replacement Additional Instructions: Follow-up with your primary care provider as needed. If you worsen return to the emergency department. Attending Signature Attending Signature I have reviewed the PA/STRATEGIC PLANNING CONSULTANT's note and plan of care. I was available for consultation as needed during the patient's visit in the emergency department. I agree with the clinical impression, plan, and disposition. (PARISA GIBBS DO) MARY ANNE CARREON APRN Jul 02, 2018 00:45 PARISA GIBBS DO September 18, 2018 14:34
== END 2018-07-02 01:05 | disposition home or self-care (01) ==
LOC: ER 23:06
DX: T83.098A Other mechanical complication of other urinary catheter, initial encounter (principal); I10 Essential (primary) hypertension; E11.9 Type 2 diabetes mellitus without complications; Z86.73 Personal history of transient ischemic attack (TIA), and cerebral infarction without residual deficits; Y82.8 Other medical devices associated with adverse incidents; Y92.89 Other specified places as the place of occurrence of the external cause
CPT/HCPCS: 51702; 51705; 99284-25

== ENCOUNTER 2018-09-06 05:08 | Emergency (ER) | payer OTHER ==
[~2018-09-06] VITALS: Ht 162.6 cm; Wt 81.6 kg
--- NOTE | 2018-09-06 05:44 | PHYS DOC ---
Past Medical History Past Medical History: CVA, Diabetes-Type II, Hypertension (PARISA GIBBS DO) Past Surgical History: Other Additional Past Surgical Histo: Left BKA, SUPRAPUBIC CATHETER (PARISA GIBBS DO) Alcohol Use: None Drug Use: None (PARISA GIBBS DO) Adult General Chief Complaint Chief Complaint: URINE CATHETER PROBLEM HPI HPI Patient is a 73 year old female who presents with concern for an obstructed suprapubic catheter which started tonight. She states that she had a stroke 5 years prior and has since required the use of a suprapubic catheter to urinate. She still gets the urge to urinate and tonight and could sense that her catheter was not draining. Patient has an appointment at [facility] to change the catheter today. She denies any suprapubic pain, dysuria, hematuria, fever, chills or flank pain. (PARISA GIBBS DO) Review of Systems Review of Systems Constitutional: Denies fever or chills [] Respiratory: Denies cough or shortness of breath [] Cardiovascular: Denies chest pain or palpitations [] GI: Reports suprapubic pain/discomfort; Denies nausea, vomiting. [] : Denies dysuria or hematuria [] Musculoskeletal: Denies back pain or flank pain [] Integument: Denies redness or drainage [] Complete review of systems found to be within normal limits, except as documented in this note. (PARISA GIBBS DO) Allergies Allergies Allergies Coded Allergies Type Severity Reaction Last Updated Verified lisinopril Allergy Severe cough 08/22/17 Yes (NIRAV OLIVEIRA MD) Physical Exam Physical Exam Constitutional: Well developed, well nourished, no acute distress, non-toxic appearance. [] HENT: Normocephalic, atraumatic, oropharynx moist, residual right sided facial paralysis [] Cardiovascular: Heart rate regular rhythm, no murmur [] Lungs & Thorax: Bilateral breath sounds clear to auscultation [] Abdomen: Soft, nontender and nondistended. Suprapubic catheter present. No erythema or exudates around os. [] Skin: Warm, dry, no erythema, no rash. [] Back: No tenderness, no CVA tenderness. [] Psychologic: Affect normal, judgement normal, mood normal. [] (PARISA GIBBS DO) Current Patient Data Vital Signs Vital Signs Date Time Temp Pulse Resp B/P (MAP) Pulse Ox O2 Delivery O2 Flow Rate FiO2 09/06/18 06:55 88 16 167/72 (103) Room Air 09/06/18 06:27 95 09/06/18 05:20 98.3 98.3 (NIRAV OLIVEIRA MD) Lab Values Laboratory Tests Test 09/06/18 06:00 Urine Collection Type Void Urine Color Yellow Urine Clarity Cloudy Urine pH 8.5 Urine Specific Holly 1.010 Urine Protein 100 mg/dL (NEG-TRACE) Urine Glucose (UA) 500 mg/dL (NEG) Urine Ketones (Stick) Negative mg/dL (NEG) Urine Blood Trace (NEG) Urine Nitrite Negative (NEG) Urine Bilirubin Negative (NEG) Urine Urobilinogen Dipstick 0.2 mg/dL (0.2 mg/dL) Urine Leukocyte Esterase Moderate (NEG) Urine RBC 1-2 /HPF (0-2) Urine WBC 5-10 /HPF (0-4) Urine Squamous Epithelial Cells Occ /LPF Urine Bacteria Many /HPF (0-FEW) Urine Mucus Slight /LPF (NIRAV OLIVEIRA MD) EKG EKG [] (PARISA GIBBS DO) Radiology/Procedures Radiology/Procedures [] (PARISA GIBBS DO) Course & Med Decision Making Course & Med Decision Making Patient presents with concern for possible obstructed suprapubic catheter. Patient denies any fever or chills. Catheter was irrigated by nursing staff upon arrival with subsequent drainage. UA pending at this time. Sign out given to Dr. Oliveira for further evaluation and final disposition. Discussed current findings and plan with patient and family, who acknowledge understanding and agreement. (PARISA GIBBS DO) Dragon Disclaimer Dragon Disclaimer This electronic medical record was generated, in whole or in part, using a voice recognition dictation system. (PARISA GIBBS DO) Departure Departure Impression: Primary Impression: Suprapubic fullness Referrals: CRESCENCIO MILLER NP (PCP) Scripts Ciprofloxacin Hcl (CIPRO) 500 Mg Tablet 1 TAB PO BID, #20 TAB Prov: NIRAV OLIVEIRA MD 09/06/18 Assessment/Plan Assessment/Plan 73-year-old female presenting to the emergency department today with possible obstruction of a suprapubic catheter. I changed out the catheter here in the emergency department. The urinalysis was cloudy with positive leuk esterase and bacteria. We will give oral ciprofloxacin which the patient's last microbiology was susceptible to as below. Follow up with PCP in one to 2 days. RUN DATE: 09/21/17 PAGE 1 RUN TIME: 57[address] [facility] [address] [place] [address] Malik Moreira M.D., Automotive Worker Foreman PATIENT: SHANTE CANAS ACCT: [id number] LOC: [address] [place] [address] U: [id number] AGE/SX: 72/F ROOM: [facility] RE09/18/[address]: ELIS ERIC MD : 1945 BED: 1 DIS: 09/20/17 STATUS: DIS IN TLOC: SPEC #: [id number] SANDI: 09/18/17 STATUS: COMP REQ #: [id number] RECD: 09/18/[address]: MICHELL ANDERSON MD SOURCE: VOID ENTR: 09/18/[address]: ASHLYN GONZALEZ MD [facility]: ORDERED: URINE CULTURE Procedure Result URINE CULTURE Final Final report URINE CULTURE RES 1 Final Klebsiella pneumoniae Greater than 100,000 colony forming units per mL Cefazolin <=4 ug/mL Cefazolin with an CLAUDIA <=16 predicts susceptibility to the oral agents cefaclor, cefdinir, cefpodoxime, cefprozil, cefuroxime, cephalexin, and loracarbef when used for therapy of uncomplicated urinary tract infections due to E. coli, Klebsiella pneumoniae, and Proteus mirabilis. ANTIMICROBIAL SUSCEPTIBILITY Final Comment S = Susceptible; I = Intermediate; R = Resistant P = Positive; N = Negative MICS are expressed in micrograms per mL Antibiotic RSLT#1 RSLT#2 RSLT#3 RSLT#4 Amoxicillin/Clavulanic Acid S Ampicillin R Cefepime S Ceftriaxone S Cefuroxime S Cephalothin S Ciprofloxacin S Ertapenem S Gentamicin S Imipenem S Levofloxacin S Piperacillin R Tetracycline S Tobramycin S Trimethoprim/Sulfa S Performed at: [address] [id number] [employer]er: Ruma Valderrama MD, Phone: [phone] END OF REPORT (NIRAV OLIVEIRA MD) PARISA GIBBS DO September 06, 2018 05:44 NIRAV OLIVEIRA MD September 06, 2018 07:31
[2018-09-06 06:07] LABS: BILIRUBIN,URINE NEGATIVE (NEG); CLARITY,URINE CLOUDY; COLOR,URINE YELLOW; NITRITE,URINE NEGATIVE (NEG); PH,URINE 8.5; PROTEIN,URINE 100 mg/dL (NEG-TRACE); UROBILINOGEN,URINE 0.2 mg/dL (0.2 mg/dL)
[2018-09-06 06:12] LABS: BACTERIA,URINE MANY /HPF (0-FEW); SQUAMOUS EPITHELIAL CELL,UR OCC /LPF
[2018-09-06] MEDS ORDERED: CIPR500T94 PO (06:47)
[2018-09-06 07:00] VITALS: BP 104/50
== END 2018-09-06 07:30 | disposition home or self-care (01) ==
LOC: ER 05:08
DX: T83.090A Other mechanical complication of cystostomy catheter, initial encounter (principal); I10 Essential (primary) hypertension; E11.9 Type 2 diabetes mellitus without complications; Z86.73 Personal history of transient ischemic attack (TIA), and cerebral infarction without residual deficits; Z88.8 Allergy status to other drugs, medicaments and biological substances; Y84.6 Urinary catheterization as the cause of abnormal reaction of the patient, or of later complication, without mention of misadventure at the time of the procedure; Y92.89 Other specified places as the place of occurrence of the external cause
CPT/HCPCS: 81001; 87086; 87186; 99284; A4314

== ENCOUNTER → 2019-05-29 | Outpatient (CLI) | payer MEDICARE, OTHER ==
[~2019-05-29] MED LIST changes: +CIPR500T94 PO; +CYAN-25 PO; -CYAN10005 PO; -GLIM4TAB2 PO; +GLIM4TAB8 PO
--- NOTE | 2019-05-29 10:58 | RAD ---
EXAM: RIGHT LOWER EXTREMITY ARTERIAL DOPPLER SONOGRAM WITH ANKLE-BRACHIAL INDICES (PHIL). HISTORY: Nonhealing right heel ulcer. Nonpalpable pulses. TECHNIQUE: Grayscale and Doppler sonographic evaluation of the right lower extremities was performed and pressure readings were assessed. FINDINGS: There are triphasic waveforms within the right common femoral artery. They become monophasic more distally throughout the right lower extremity. The dorsalis pedis artery is patent with postobstructive flow. There is subcutaneous edema within the right calf. Right brachial pressure: 146 mmHg Right ankle pressure: 192 mmHg Right ankle PHIL: 1.32 IMPRESSION: 1. Findings consistent with significantly flow-limiting stenosis within the right distal common femoral or proximal superficial femoral artery. 2. Borderline noncompressible right ankle brachial index, suggesting dense arterial calcification. Electronically signed by: César Roach MD (05/29/2019 10:55 AM) [facility]
== END | disposition home or self-care (01) ==
LOC: US 09:31
PROVIDERS: ATTEND Preventive Medicine Undersea and Hyperbaric Medicine
DX: L97.418 Non-pressure chronic ulcer of right heel and midfoot with other specified severity (principal)
CPT/HCPCS: 93922; 93926

== ENCOUNTER 2019-06-10 08:25 | Outpatient (CLI) | payer MEDICARE ==
[2019-06-10] VITALS (10 sets, daily range): BP systolic 137–174; BP diastolic 83–90
[~2019-06-10] VITALS: Ht 160 cm; Wt 74.8 kg
[2019-06-10 09:22] LABS: BASO # 0.1 x10^3/uL (0.0-0.2); BASO % 1 % (0-3); EOS # 0.5 x10^3/uL (0.0-0.7); EOS % 5 % (0-3); HEMOGLOBIN 8.6 g/dL (12.0-15.5); LYMPH # 2.6 x10^3/uL (1.0-4.8); LYMPH % 27 % (24-48); MEAN CORPUSCULAR HEMOGLOBIN 26 pg (25-35); MEAN CORPUSCULAR HGB CONC 32 g/dL (31-37); MEAN CORPUSCULAR VOLUME 81 fL (79-100); MONO # 0.5 x10^3/uL (0.0-1.1); MONO % 5 % (0-9); NEUT % 62 % (31-73); PLATELET COUNT 332 x10^3/uL (140-400); RED BLOOD COUNT 3.34 x10^6/uL (3.50-5.40); RED CELL DISTRIBUTION WIDTH 15.6 % (11.5-14.5); WHITE BLOOD COUNT 9.7 x10^3/uL (4.0-11.0)
[2019-06-10 09:39] LABS: PROTHROMBIN TIME PATIENT 13.3 SEC (11.7-14.0)
[2019-06-10 09:44] LABS: CREATININE 1.6 mg/dL (0.6-1.0); POTASSIUM 4.4 mmol/L (3.5-5.1)
[2019-06-10] MEDS ORDERED: SIMV20TA18 PO (09:52)
[2019-06-10] MEDS ORDERED: INSU100V31 SQ (09:52)
[2019-06-10] MEDS ORDERED: METF500T16 PO (09:52)
[2019-06-10] MEDS ORDERED: IODIXANOL 320 MG/ML 100 ML VIAL. ONE (10:11)
[2019-06-10] MEDS ORDERED: HEPARIN for ARTERIAL LINE 1,500 ML ONE (10:11)
[2019-06-10] MEDS ORDERED: LIDOCAINE WITH 8.4% SOD BICARB 3 ML DISP.SYRIN. ONE (10:11)
[2019-06-10] MEDS ORDERED: MIDAZOLAM HCL/PF 2 MG/2 ML VIAL. ONE (10:14)
[2019-06-10] MEDS ORDERED: HEPARIN for IV BOLUS 10,000 UNIT/10 ML VIAL. ONE (10:15)
[2019-06-10] MEDS ORDERED: fentaNYL PF VIAL 100 MCG/2 ML VIAL ONE (10:15)
[2019-06-10] MEDS ORDERED: LIDOCAINE WITH 8.4% SOD BICARB 3 ML DISP.SYRIN. IJ ONE (10:30)
[2019-06-10] MEDS ORDERED: fentaNYL PF VIAL 100 MCG/2 ML VIAL IV ONE (10:30)
[2019-06-10] MEDS ORDERED: MIDAZOLAM HCL/PF 2 MG/2 ML VIAL. IV ONE (10:30)
[2019-06-10] MEDS ORDERED: IODIXANOL 320 MG/ML 100 ML VIAL. IART ONE (10:30)
[2019-06-10] MEDS ORDERED: HEPARIN for IV BOLUS 10,000 UNIT/10 ML VIAL. IV ONE (11:15)
--- NOTE | 2019-06-10 15:30 | NUR ---
Pt completed 3 hour flat recovery, head raised to 45 degrees. Groin site remains dry and intact. Pt without c/o at this time. PARISA WILLOUGHBY
--- NOTE | 2019-06-10 16:10 | NUR ---
Discharge Note: SHANTE CANAS Discharge instructions and discharge home medications reviewed with Hose Tester and a copy given. All questions have been answered and understanding verbalized. The following instructions and handouts were given: groin site care, pvd, angioplasty, information on Myn[employer]. Groin site remains dry and intact. New dressing applied to R heel. Discontinued lines and drains: sl dc'd R forearm intact. Patient discharged to home with daughter via wheelchair. PARISA WILLOUGHBY
--- NOTE | 2019-06-10 16:30 | NUR ---
Pts daughter called and stated that Dr Jackson "said something about a blood thinner". Dr Jackosn called and stated that he did want the patient to start on Plavix 75mg daily to start tomorrow. He will call in RX to [facility] pharmacy at the [facility]. Daughter given instructions via phone, V/U. AVA
--- NOTE | 2019-06-11 11:03 | RAD ---
06/10/2019 1. Abdominal aortogram, CO2 2. Pelvic angiography, CO2 3. Right lower extremity angiography, CO2 4. Right lower extremity angiography, dilute contrast 5. Balloon angioplasty of an occluded posterior tibial artery extending into the lateral plantar artery. 6. Drug coated balloon angioplasty of the distal superficial femoral artery INDICATION: 73-year-old female with nonhealing wound, right heel. Known atherosclerotic vascular disease. Discussion: The procedure was explained in its entirety to the patient or the patients designated entry level sales representative by a member of the treatment team, including a discussion of the risks, benefits and commonly accepted alternatives to the procedure, as well as the expected consequences of no therapy whatsoever. Discussion of the risks included, but was not limited to, those that are most frequent and those that are rare but possibly severe or life-threatening, as well as the possibility of unforeseen complications. All elements of maximal sterile barrier technique including the use of a cap, mask, sterile gown, sterile gloves, large sterile sheet, appropriate hand hygiene, and 2% chlorhexidine for cutaneous antisepsis (or acceptable alternative antiseptic per current guidelines) were followed for this procedure. The left groin was prepped and draped using sterile barrier technique as described. Ultrasound evaluation demonstrates left common femoral artery to be patent. The artery was accessed using direct ultrasound guidance and micropuncture technique. Reference ultrasound images were saved the medical record. 5 Egyptian vascular sheath was placed. An Omni flush catheter was advanced into the abdominal aorta. Abdominal pelvic angiography was performed using carbon dioxide gas. No hemodynamically significant stenosis involving the aortoiliac arteries were identified. Carbon dioxide angiography of the right lower extremity was performed. Right common femoral artery is patent. There is moderate to high-grade stenosis of the right SFA. Significant tibial vessel disease is identified by CO2, though detail is lacking. Contrast angiography of the distal SFA was performed demonstrating high-grade stenosis just above the adductor canal. Contrast angiography below the knee demonstrates the popliteal artery to be patent. The anterior tibial artery is chronically occluded. The peroneal artery remains patent to the ankle where it supplies collateral flow to the distal ET. A significant dorsalis pedis artery was not visualized. The posterior tibial artery is chronically occluded proximally and the distal portion however distal reconstitution extends into the lateral plantar artery is a probable dominant blood supply to the foot as well as the heel. Balloon angioplasty of the posterior tibial artery was performed with 2 mm, and subsequently 2.5 mm balloon which ultimately established good in line flow through the posterior tibial artery into the lateral plantar artery. Balloon angioplasty of the distal SFA was performed with 5 mm balloon resulting in improved morphology and flow. A closure device was deployed as the sheath was removed. Manual pressure was held. No immediate complications were identified. Total fluoroscopy time: 30 minutes Dose area product 289: Gycm2 The procedures performed under conscious sedation including continuous cardiopulmonary monitoring via dedicated sedation nurse. [id number] sedation time: 138 minutes Impression: 1. No clinically significant aortoiliac stenosis. 2. Moderate to high-grade stenosis of the distal right SFA treated with drug coated balloon angioplasty 3. 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 With voodoo of in-line flow. 4. Chronic total occlusion anterior tibial artery with nonvisualization of the dorsalis pedis artery. Peroneal artery is patent to the ankle supplying collaterals to the foot
== END 2019-06-10 16:10 | disposition home or self-care (01) ==
LOC: INTRAD 08:25
PROVIDERS: ATTEND Emergency Medicine Undersea and Hyperbaric Medicine
DX: I70.212 Atherosclerosis of native arteries of extremities with intermittent claudication, left leg (principal); I10 Essential (primary) hypertension; E78.00 Pure hypercholesterolemia, unspecified; Z86.73 Personal history of transient ischemic attack (TIA), and cerebral infarction without residual deficits; Z79.899 Other long term (current) drug therapy
CPT/HCPCS: 36415; 37224; 37228; 75625; 76937; 80048; 85025; 85610; C1713; C1725; C1760; C1769; C1892; C1894; C2623; J1644; J2250; J3010; Q9967; 75710; 99152; 99153; G0269

== ENCOUNTER → 2019-08-26 | Outpatient (CLI) | payer MEDICARE ==
[2019-06-10 15:45] VITALS: BP 173/90
[~2019-08-26] MED LIST changes: +CARV25TA2 PO; +CLOP75TA PO; +CLOT15CR4 TP; +CRESTOR40 MG PO; +DOXY100C2 PO; +FERR236T2 PO; +INSU100V31 SQ; +METF10007 PO; +MULT-238 PO; +SIMV20TA18 PO
--- NOTE | 2019-08-26 12:41 | RAD ---
Right hindfoot MRI without IV contrast. INDICATION: Chronic diabetic foot ulcer right heel with exposed bone. COMPARISON: Right foot x-ray of 04/11/2019. TECHNIQUE: Axial fat-saturated T2, coronal T1, coronal STIR, sagittal STIR, sagittal T1 and axial STIR MR images of the right heel were obtained without IV contrast. FINDINGS: Medial plate and screw construct fixation of an old distal tibial fracture is again evident. 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 A soft tissue defect in the heel is present with fluid signal intensity. This abuts an eroded dorsal calcaneus where thickening and fluid like signal hyperintensity in the medial band of the plantar fascia is evident. The underlying bone shows diffuse marrow edema with corresponding signal hypointensity on T1-weighted imaging, partially replacing the otherwise fatty marrow signal diffusely. Extent of marrow edema is best illustrated on the sagittal STIR sequence measuring 4.9 cm anteroposterior and 3.7 cm craniocaudal. IMPRESSION: MRI evidence osteomyelitis in the right calcaneus. Electronically signed by: Benoit Russ MD (08/26/2019 12:38 PM) [id number]
== END | disposition home or self-care (01) ==
LOC: MRI 10:48
PROVIDERS: ATTEND Preventive Medicine Undersea and Hyperbaric Medicine
DX: M86.8X7 Other osteomyelitis, ankle and foot (principal); L97.416 Non-pressure chronic ulcer of right heel and midfoot with bone involvement without evidence of necrosis; M21.6X1 Other acquired deformities of right foot; M19.071 Primary osteoarthritis, right ankle and foot
CPT/HCPCS: 73718

== ENCOUNTER 2019-10-30 09:58 | Emergency (ER) | payer MEDICARE ==
[~2019-10-30] VITALS: Ht 165.1 cm; Wt 100.0 kg
[~2019-10-30 09:58] MED LIST changes: +ALBU2.5V8 NEB; +ASCO500T4 PO; +CLOT15CR23 TP; -CLOT15CR4 TP; +LACT1CAP19 PO; +NA P133E6 PR
[2019-10-30] MEDS ORDERED: IV NORMAL SALINE 1000ML BAG 1,000 ML IV ONE (10:30)
[2019-10-30 10:35] LABS: BASO # 0.1 x10^3/uL (0.0-0.2); BASO % 1 % (0-3); EOS # 0.5 x10^3/uL (0.0-0.7); EOS % 5 % (0-3); HEMATOCRIT 23.4 % (36.0-47.0); HEMOGLOBIN 7.6 g/dL (12.0-15.5); LYMPH # 2.4 x10^3/uL (1.0-4.8); LYMPH % 25 % (24-48); MEAN CORPUSCULAR HEMOGLOBIN 27 pg (25-35); MEAN CORPUSCULAR HGB CONC 33 g/dL (31-37); MEAN CORPUSCULAR VOLUME 83 fL (79-100); MONO # 0.7 x10^3/uL (0.0-1.1); MONO % 7 % (0-9); NEUT # 6.2 x10^3/uL (1.8-7.7); NEUT % 62 % (31-73); PLATELET COUNT 334 x10^3/uL (140-400); RED BLOOD COUNT 2.83 x10^6/uL (3.50-5.40); RED CELL DISTRIBUTION WIDTH 17.3 % (11.5-14.5); WHITE BLOOD COUNT 9.9 x10^3/uL (4.0-11.0)
[2019-10-30 10:37] LABS: BILIRUBIN,URINE NEGATIVE (NEG); CLARITY,URINE CLEAR; COLOR,URINE YELLOW; NITRITE,URINE NEGATIVE (NEG); PROTEIN,URINE 30 mg/dL (NEG-TRACE); UROBILINOGEN,URINE 0.2 mg/dL (0.2 mg/dL)
[2019-10-30 10:46] LABS: CALCIUM 8.6 mg/dL (8.5-10.1); CREATININE 1.5 mg/dL (0.6-1.0); GFR 40.9; POTASSIUM 4.5 mmol/L (3.5-5.1)
[2019-10-30 10:47] LABS: BACTERIA,URINE FEW /HPF (0-FEW); SQUAMOUS EPITHELIAL CELL,UR OCC /LPF; WBC,URINE >40 /HPF (0-4)
[2019-10-30 10:51] LABS: ALBUMIN 2.2 g/dL (3.4-5.0); ALBUMIN/GLOBULIN RATIO 0.4 (1.0-1.7); MAGNESIUM 1.8 mg/dL (1.8-2.4); TOTAL BILIRUBIN 0.1 mg/dL (0.2-1.0); TOTAL PROTEIN 7.1 g/dL (6.4-8.2)
--- NOTE | 2019-10-30 14:29 | PHYS DOC ---
Past Medical History Past Medical History: CVA, Diabetes-Type II, Hypertension Past Surgical History: Other Additional Past Surgical Histo: BILATERAL BKA Smoking Status: Never Smoker Alcohol Use: None Drug Use: None General Adult EDM: Chief Complaint: DIARRHEA HPI: HPI: Patient is a 74 year old was brought here by EMS due to 3 days history of diarrhea. Patient was treated for UTI one month ago. Patient has history of CVA, has indwelling lehman catheter in place. NO FEVER, NO BLOOD IN STOOL. Her daughter said the diarrhea has slowing down today but worried about dehydration for patient. Review of Systems: Review of Systems: Constitutional: Denies fever or chills. [] Eyes: Denies change in visual acuity. [] HENT: Denies nasal congestion or sore throat. [] Respiratory: Denies cough or shortness of breath. [] Cardiovascular: Denies chest pain or edema. [] GI: Denies abdominal pain, nausea, vomiting, bloody stools, positive for diarrhea. [] : Denies dysuria. [] Musculoskeletal: Denies back pain or joint pain. [] Integument: Denies rash. [] Neurologic: Denies headache, focal weakness or sensory changes. [] Endocrine: Denies polyuria or polydipsia. [] Lymphatic: Denies swollen glands. [] Psychiatric: Denies depression or anxiety. [] Heart Score: Risk Factors: Risk Factors: DM, Current or recent (<one month) smoker, HTN, HLP, family history of CAD, obesity. Risk Scores: Score 0 - 3: 2.5% MACE over next 6 weeks - Discharge Home Score 4 - 6: 20.3% MACE over next 6 weeks - Admit for Clinical Observation Score 7 - 10: 72.7% MACE over next 6 weeks - Early Invasive Strategies Current Medications: Current Medications Medications (Trade) Dose Ordered Sig/Enrique Start Time Stop Time Status Last Admin Dose Admin Sodium Chloride 1,000 ml @ 1,000 mls/hr 1X ONCE 10/30/19 10:30 10/30/19 11:29 DC 10/30/19 10:39 1,000 MLS/HR Allergies: Allergies: Allergies Coded Allergies Type Severity Reaction Last Updated Verified lisinopril Allergy Severe cough 08/22/17 Yes Physical Exam: PE: Constitutional: Well developed, well nourished, no acute distress, non-toxic appearance. [] HENT: Normocephalic, atraumatic, bilateral external ears normal, oropharynx moist, no oral exudates, nose normal. [] Eyes: PERRLA, EOMI, conjunctiva normal, no discharge. [] Neck: Normal range of motion, no tenderness, supple, no stridor. [] Cardiovascular:Heart rate regular rhythm, no murmur [] Lungs & Thorax: Bilateral breath sounds clear to auscultation [] Abdomen: Bowel sounds normal, soft, no tenderness, no masses, no pulsatile masses. Lehman catheter in place Skin: Warm, dry, no erythema, no rash. [] Back: No tenderness, no CVA tenderness. [] Extremities: No tenderness, no cyanosis, no clubbing, no edema. [] Neurologic: Alert and oriented X 3, Psychologic: Affect normal, judgement normal, mood normal. [] Current Patient Data: Labs: Laboratory Tests Test 10/30/19 10:20 White Blood Count 9.9 x10^3/uL (4.0-11.0) Red Blood Count 2.83 x10^6/uL (3.50-5.40) L Hemoglobin 7.6 g/dL (12.0-15.5) L Hematocrit 23.4 % (36.0-47.0) L Mean Corpuscular Volume 83 fL (79-100) Mean Corpuscular Hemoglobin 27 pg (25-35) Mean Corpuscular Hemoglobin Concent 33 g/dL (31-37) Red Cell Distribution Width 17.3 % (11.5-14.5) H Platelet Count 334 x10^3/uL (140-400) Neutrophils (%) (Auto) 62 % (31-73) Lymphocytes (%) (Auto) 25 % (24-48) Monocytes (%) (Auto) 7 % (0-9) Eosinophils (%) (Auto) 5 % (0-3) H Basophils (%) (Auto) 1 % (0-3) Neutrophils # (Auto) 6.2 x10^3/uL (1.8-7.7) Lymphocytes # (Auto) 2.4 x10^3/uL (1.0-4.8) Monocytes # (Auto) 0.7 x10^3/uL (0.0-1.1) Eosinophils # (Auto) 0.5 x10^3/uL (0.0-0.7) Basophils # (Auto) 0.1 x10^3/uL (0.0-0.2) Urine Collection Type Unknown Urine Color Yellow Urine Clarity Clear Urine pH 6.0 (<5.0-8.0) Urine Specific [place] 1.010 (1.000-1.030) Urine Protein 30 mg/dL (NEG-TRACE) Urine Glucose (UA) Negative mg/dL (NEG) Urine Ketones (Stick) Negative mg/dL (NEG) Urine Blood Small (NEG) Urine Nitrite Negative (NEG) Urine Bilirubin Negative (NEG) Urine Urobilinogen Dipstick 0.2 mg/dL (0.2 mg/dL) Urine Leukocyte Esterase Large (NEG) Urine RBC 3-5 /HPF (0-2) Urine WBC >40 /HPF (0-4) Urine Squamous Epithelial Cells Occ /LPF Urine Bacteria Few /HPF (0-FEW) Sodium Level 139 mmol/L (136-145) Potassium Level 4.5 mmol/L (3.5-5.1) Chloride Level 106 mmol/L (98-107) Carbon Dioxide Level 26 mmol/L (21-32) Anion Gap 7 (6-14) Blood Urea Nitrogen 23 mg/dL (7-20) H Creatinine 1.5 mg/dL (0.6-1.0) H Estimated GFR (Cockcroft-Gault) 40.9 BUN/Creatinine Ratio 15 (6-20) Glucose Level 112 mg/dL (70-99) H Calcium Level 8.6 mg/dL (8.5-10.1) Magnesium Level 1.8 mg/dL (1.8-2.4) Total Bilirubin 0.1 mg/dL (0.2-1.0) L Aspartate Amino Transferase (AST) 17 U/L (15-37) Alanine Aminotransferase (ALT) 13 U/L (14-59) L Alkaline Phosphatase 85 U/L (46-116) Total Protein 7.1 g/dL (6.4-8.2) Albumin 2.2 g/dL (3.4-5.0) L Albumin/Globulin Ratio 0.4 (1.0-1.7) L Lipase 157 U/L (73-393) Laboratory Tests 7/2/20 10:20 Laboratory Tests 10/30/19 10:20 Vital Signs: Vital Signs Date Time Temp Pulse Resp B/P (MAP) Pulse Ox O2 Delivery O2 Flow Rate FiO2 10/30/19 13:00 88 13 156/67 (96) 100 Room Air 10/30/19 09:58 98.6 98.6 EKG: EKG: [] Radiology/Procedures: Radiology/Procedures: [] Course & Med Decision Making: Course & Med Decision Making Pertinent Labs and Imaging studies reviewed. (See chart for details) Patient was in the ER for a long time but not able to provide any stool sample because she no longer has diarrhea. She felt much better with IV fluid replace ment. Her hemoglobin and hematocrit are at base line. 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 Will discharge her home. Dragon Disclaimer: [employer] Disclaimer: This electronic medical record was generated, in whole or in part, using a voice recognition dictation system. Departure Departure Impression: Primary Impression: Diarrhea Disposition: 01 HOME, SELF-CARE Condition: IMPROVED Referrals: BASSAM DILLON MD (PCP) please follow up with your family doctor as needed Patient Instructions: Diarrhea Justicifation of Admission Dx: Justifications for Admission: Justification of Admission Dx: N/A ESTRADA ADAMS DO Oct 30, 2019 14:29
[2019-10-30 17:00] VITALS: BP 151/106
== END 2019-10-30 17:28 | disposition home or self-care (01) ==
LOC: ER 09:58
DX: R19.7 Diarrhea, unspecified (principal); E11.9 Type 2 diabetes mellitus without complications; I10 Essential (primary) hypertension; Z86.73 Personal history of transient ischemic attack (TIA), and cerebral infarction without residual deficits; Z88.8 Allergy status to other drugs, medicaments and biological substances
CPT/HCPCS: 36415; 80053; 81001; 83690; 83735; 85025; 87086; 96360; 99285; J7030

== ENCOUNTER 2020-01-05 22:53 | Emergency (ER) | payer MEDICARE ==
[~2020-01-05] VITALS: Ht 162.6 cm; Wt 81.8 kg
[~2020-01-05 22:53] MED LIST changes: -ASPI-612 PO; +ASPI-886 PO
[2020-01-06] MEDS ORDERED: NITR100C62 PO (00:49)
--- NOTE | 2020-01-06 00:50 | PHYS DOC ---
Past Medical History Past Medical History: CVA, Diabetes-Type II, Hypertension Past Surgical History: Other Additional Past Surgical Histo: BILATERAL BKA Smoking Status: Never Smoker Alcohol Use: None Drug Use: None General Adult EDM: Chief Complaint: URINE CATHETER PROBLEM HPI: HPI: Patient is a 74 year old female presents for evaluation of suprapubic catheter. Patient suprapubic catheter stopped draining tonight. Patient also states she had some suprapubic discomfort. Patient has suprapubic catheter for 6 years. Daughter states it is changed monthly. Review of Systems: Review of Systems: Constitutional: Denies fever or chills. [] Eyes: Denies change in visual acuity. [] HENT: Denies nasal congestion or sore throat. [] Respiratory: Denies cough or shortness of breath. [] Cardiovascular: Denies chest pain or edema. [] GI: Denies abdominal pain, nausea, vomiting, bloody stools or diarrhea. [] : Denies dysuria. [] Musculoskeletal: Denies back pain or joint pain. [] Integument: Denies rash. [] Neurologic: Denies headache, focal weakness or sensory changes. [] Endocrine: Denies polyuria or polydipsia. [] Lymphatic: Denies swollen glands. [] Psychiatric: Denies depression or anxiety. [] Heart Score: Risk Factors: Risk Factors: DM, Current or recent (<one month) smoker, HTN, HLP, family history of CAD, obesity. Risk Scores: Score 0 - 3: 2.5% MACE over next 6 weeks - Discharge Home Score 4 - 6: 20.3% MACE over next 6 weeks - Admit for Clinical Observation Score 7 - 10: 72.7% MACE over next 6 weeks - Early Invasive Strategies Allergies: Allergies: Allergies Coded Allergies Type Severity Reaction Last Updated Verified lisinopril Allergy Severe cough 08/22/17 Yes Physical Exam: PE: Constitutional: Well developed, well nourished, no acute distress, non-toxic appearance. [] Lungs & Thorax: No respiratory distress Abdomen: Bowel sounds normal, soft, no tenderness, no masses, suprapubic catheter in place no abdominal distention Skin: Warm, dry, no erythema, no rash. [] Back: No tenderness, no CVA tenderness. [] Neurologic: Alert normal motor function, normal sensory function, no focal deficits noted. [] Current Patient Data: Vital Signs: Vital Signs Date Time Temp Pulse Resp B/P (MAP) Pulse Ox O2 Delivery O2 Flow Rate FiO2 01/05/20 23:24 99.3 95 18 186/81 (116) 96 Room Air 99.3 EKG: EKG: [] Radiology/Procedures: Radiology/Procedures: [] Course & Med Decision Making: Course & Med Decision Making Pertinent Labs and Imaging studies reviewed. (See chart for details) [] Suprapubic catheter replaced no complications catheter draining. There is some blood tinged urine initially draining. Daughter states patient has chronic UTIs is currently on probiotic. Suspect current UTI. Suspect blood clot blocked drainage. Will place patient on Cipro twice daily for 5 days. Patient to continue probiotic. Dragon Disclaimer: Lissa Disclaimer: This electronic medical record was generated, in whole or in part, using a voice recognition dictation system. Departure Departure Impression: Primary Impression: Suprapubic catheter dysfunction Disposition: 01 HOME, SELF-CARE Condition: STABLE Referrals: BASSAM DILLON MD (PCP) Patient Instructions: Suprapubic Catheter Replacement Scripts Nitrofurantoin Monohyd/M-Cryst (MACROBID 100 MG CAPSULE) 100 Mg Capsule 1 CAP PO BID for 5 Days, #10 CAP 0 Refills Prov: DONALDO CALLAHAN DO 01/06/20 Justicifation of Admission Dx: Justifications for Admission: Justification of Admission Dx: N/A DONALDO CALLAHAN DO Jan 06, 2020 00:50
[2020-01-06 01:16] VITALS: BP 177/79
== END 2020-01-06 01:20 | disposition home or self-care (01) ==
LOC: ER 22:53
DX: T83.098A Other mechanical complication of other urinary catheter, initial encounter (principal); E11.9 Type 2 diabetes mellitus without complications; I10 Essential (primary) hypertension; Z86.73 Personal history of transient ischemic attack (TIA), and cerebral infarction without residual deficits; Z88.8 Allergy status to other drugs, medicaments and biological substances; Y83.8 Other surgical procedures as the cause of abnormal reaction of the patient, or of later complication, without mention of misadventure at the time of the procedure
CPT/HCPCS: 51702; 99285-25

== ENCOUNTER 2020-08-18 09:09 | Emergency (ER) | payer MEDICARE ==
[~2020-08-18] VITALS: Ht 160 cm; Wt 81.8 kg
[~2020-08-18 09:09] MED LIST changes: +AMLO-187 PO; -AMLO10TA8 PO; -NA P133E6 PR; +NITR100C62 PO; +[UNRECOGNIZED DRUG - CODE] PR
[2020-08-18 10:44] LABS: BILIRUBIN,URINE NEGATIVE (NEG); CLARITY,URINE CLOUDY; COLOR,URINE YELLOW; NITRITE,URINE NEGATIVE (NEG); PH,URINE 6.5 (<5.0-8.0); PROTEIN,URINE 100 mg/dL (NEG-TRACE); UROBILINOGEN,URINE 0.2 mg/dL (0.2 mg/dL)
[2020-08-18 10:55] LABS: BACTERIA,URINE MANY /HPF (0-FEW); WBC,URINE 20-40 /HPF (0-4)
[2020-08-18 11:25] VITALS: BP 198/93
[2020-08-18] MEDS ORDERED: PHENAZOPYRIDINE 200 MG TABLET. PO ONE (11:30)
--- NOTE | 2020-08-18 12:27 | PHYS DOC ---
Past Medical History Past Medical History: CVA, Diabetes-Type II, Hypertension Past Surgical History: Other Additional Past Surgical Histo: BILATERAL BKA Smoking Status: Never Smoker Alcohol Use: None Drug Use: None General Adult EDM: Chief Complaint: CATHETER CHANGE HPI: HPI: Patient is a 75 year old female who was brought here by her family to have her suprapubic catheter replaced. Patient has just suprapubic catheter for a long time, she had it replaced every month. This morning she feels like pressure in her bladder because the Xie catheter was not draining. Her daughter attempt to flush it but it was not draining at work. No fever, no nausea vomiting. No chest pain, no trouble breathing. Review of Systems: Review of Systems: Constitutional: Denies fever or chills. [] Eyes: Denies change in visual acuity. [] HENT: Denies nasal congestion or sore throat. [] Respiratory: Denies cough or shortness of breath. [] Cardiovascular: Denies chest pain or edema. [] GI: positive for lower abdominal pain, no nausea, vomiting, bloody stools or diarrhea. [] : Denies dysuria. [] Musculoskeletal: Denies back pain or joint pain. [] Integument: Denies rash. [] Neurologic: Denies headache, focal weakness or sensory changes. [] Endocrine: Denies polyuria or polydipsia. [] Lymphatic: Denies swollen glands. [] Psychiatric: Denies depression or anxiety. [] Heart Score: C/O Chest Pain: N/A Risk Factors: Risk Factors: DM, Current or recent (<one month) smoker, HTN, HLP, family history of CAD, obesity. Risk Scores: Score 0 - 3: 2.5% MACE over next 6 weeks - Discharge Home Score 4 - 6: 20.3% MACE over next 6 weeks - Admit for Clinical Observation Score 7 - 10: 72.7% MACE over next 6 weeks - Early Invasive Strategies Current Medications: Current Medications Medications (Trade) Dose Ordered Sig/Enrique Start Time Stop Time Status Last Admin Dose Admin Phenazopyridine HCl (Pyridium) 200 mg 1X ONCE 08/18/20 11:30 08/18/20 11:31 DC 08/18/20 11:53 200 MG Allergies: Allergies: Allergies Coded Allergies Type Severity Reaction Last Updated Verified lisinopril Allergy Severe cough 08/22/17 Yes Physical Exam: PE: Constitutional: Well developed, well nourished, no acute distress, non-toxic appearance. [] HENT: Normocephalic, atraumatic, bilateral external ears normal, oropharynx moist, no oral exudates, nose normal. [] Eyes: PERRLA, EOMI, conjunctiva normal, no discharge. [] Abdomen: Bowel sounds normal, soft, tenderness at suprapubic cather, no masses, no pulsatile masses. Suprapubic catheter in place, appeared to b clogged somewhere. Skin: Warm, dry, no erythema, no rash. [] Back: No tenderness, no CVA tenderness. [] Extremities: No tenderness, no cyanosis, no clubbing, ROM intact, no edema. Bilateral BKA Neurologic: Alert and oriented X 3, normal motor function, normal sensory function, no focal deficits noted. [] Psychologic: Affect normal, judgement normal, mood normal. [] Current Patient Data: Labs: Laboratory Tests Test 08/18/20 10:19 Urine Collection Type Unknown Urine Color Yellow Urine Clarity Cloudy Urine pH 6.5 (<5.0-8.0) Urine Specific [place] 1.010 (1.000-1.030) Urine Protein 100 mg/dL (NEG-TRACE) Urine Glucose (UA) Negative mg/dL (NEG) Urine Ketones (Stick) Negative mg/dL (NEG) Urine Blood Large (NEG) Urine Nitrite Negative (NEG) Urine Bilirubin Negative (NEG) Urine Urobilinogen Dipstick 0.2 mg/dL (0.2 mg/dL) Urine Leukocyte Esterase Large (NEG) Urine RBC 11-20 /HPF (0-2) Urine WBC 20-40 /HPF (0-4) Urine Squamous Epithelial Cells Occ /LPF Urine Bacteria Many /HPF (0-FEW) Vital Signs: Vital Signs Date Time Temp Pulse Resp B/P (MAP) Pulse Ox O2 Delivery O2 Flow Rate FiO2 08/18/20 11:25 90 19 198/93 (128) 08/18/20 10:24 98.1 97 Room Air 98.1 EKG: EKG: [] Radiology/Procedures: Radiology/Procedures: [] Course & Med Decision Making: Course & Med Decision Making Pertinent Labs and Imaging studies reviewed. (See chart for details) Suprapubic catheter was replaced by RN, it was checked, working fine, patient felt much better. her urine has been colonized,no needed for treatment. Dragon Disclaimer: [employer] Disclaimer: This electronic medical record was generated, in whole or in part, using a voice recognition dictation system. Departure Departure Impression: Primary Impression: Obstructed Xie catheter Disposition: HOME / SELF CARE / HOMELESS Condition: IMPROVED Referrals: BASSAM DILLON MD (PCP) follow up with your doctor as needed Patient Instructions: Xie Catheter Care, Adult Additional Instructions: Thank you for visiting our Emergency Department. We appreciate you trusting us with your care. If any additional problems come up don't hesitate to return to visit us. Please follow up with your primary care provider so they can plan additional care if needed and know about the problem that you had. If symptoms worsen come back to the Emergency Department. Any concerning symptoms that start such as chest pain, shortness of air, weakness or numbness on one side of the body, running high fevers or any other concerning symptoms return to the ER. ESTRADA ADAMS DO Aug 18, 2020 12:27
== END 2020-08-18 12:36 | disposition home or self-care (01) ==
LOC: ER 09:09
DX: T83.098A Other mechanical complication of other urinary catheter, initial encounter (principal); E11.9 Type 2 diabetes mellitus without complications; I10 Essential (primary) hypertension; Z86.73 Personal history of transient ischemic attack (TIA), and cerebral infarction without residual deficits; Z88.8 Allergy status to other drugs, medicaments and biological substances; Y84.6 Urinary catheterization as the cause of abnormal reaction of the patient, or of later complication, without mention of misadventure at the time of the procedure; Y92.89 Other specified places as the place of occurrence of the external cause
CPT/HCPCS: 51702; 81001; 87086; 99284

== ENCOUNTER 2020-12-29 14:30 | Emergency (ER) | payer MEDICARE ==
[~2020-12-29] VITALS: Ht 142.2 cm; Wt 81.8 kg
[~2020-12-29 14:30] MED LIST changes: -DOXY100C2 PO; +DOXY100C3 PO; +ERGO500089 PO
[2020-12-29 15:40] LABS: BILIRUBIN,URINE NEGATIVE (NEG); CLARITY,URINE CLOUDY; COLOR,URINE YELLOW; NITRITE,URINE NEGATIVE (NEG); PROTEIN,URINE 100 mg/dL (NEG-TRACE); UROBILINOGEN,URINE 0.2 mg/dL (0.2 mg/dL)
[2020-12-29 15:58] LABS: BACTERIA,URINE MANY /HPF (0-FEW); RBC,URINE 0 /HPF (0-2)
--- NOTE | 2020-12-29 16:07 | PHYS DOC ---
Past Medical History Past Medical History: CVA, Diabetes-Type II, Hypertension Additional Past Medical Histor: SUPRAPUBIC CATH (HERBER HERNANDEZ PROGRESS[employer] REGISTERED NURSE) Past Surgical History: Other Additional Past Surgical Histo: BILAT BKA (HERBER HERNANDEZ [employer] REGISTERED NURSE) Smoking Status: Never Smoker Alcohol Use: None Drug Use: None (HERBER HERNANDEZ [employer] REGISTERED NURSE) General Adult EDM: Chief Complaint: CATHETER CHANGE HPI: HPI: Patient is a 75 year old female with history of diabetes type 2, hypertension, CVA, bilateral below the knee amputations, suprapubic catheter for over 6 years who presents to the ED today for monthly change of suprapubic catheter. Patient states she usually gets it changed at but they do not have an appointment anytime soon. (HERBER HERNANDEZ PROGR[employer] REGISTERED NURSE) Review of Systems: Review of Systems: Constitutional: Denies fever or chills. [] GI: Denies abdominal pain, nausea, vomiting, bloody stools or diarrhea. [] : Visit for suprapubic catheter change. Denies dysuria. [] Musculoskeletal: Denies back pain or joint pain. [] Integument: Denies rash. [] Neurologic: Denies headache, focal weakness or sensory changes. [] Psychiatric: Denies depression or anxiety. [] (HERBER HERNANDEZ PROGR[employer] REGISTERED NURSE) Heart Score: C/O Chest Pain: N/A Risk Factors: Risk Factors: DM, Current or recent (<one month) smoker, HTN, HLP, family history of CAD, obesity. Risk Scores: Score 0 - 3: 2.5% MACE over next 6 weeks - Discharge Home Score 4 - 6: 20.3% MACE over next 6 weeks - Admit for Clinical Observation Score 7 - 10: 72.7% MACE over next 6 weeks - Early Invasive Strategies (HERBER HERNANDEZ [employer]GR[employer] REGISTERED NURSE) Allergies: Allergies: Allergies Coded Allergies Type Severity Reaction Last Updated Verified lisinopril Allergy Severe cough 08/22/17 Yes (HERBER HERNANDEZ [employer] REGISTERED NURSE) Physical Exam: PE: Constitutional: Well developed, well nourished, no acute distress, non-toxic appearance. [] Abdomen: Bowel sounds normal, soft, no tenderness, no masses, no pulsatile masses. [] Suprapubic catheter in place, no abdominal tenderness on exam. Cloudy urine in the tubing Skin: Warm, dry, no erythema, no rash. [] Back: No tenderness, no CVA tenderness. [] Extremities: Bilateral below the knee amputations Neurologic: Alert and oriented X 3, normal motor function, normal sensory function, no focal deficits noted. [] Psychologic: Affect normal, judgement normal, mood normal. [] (HERBER HERNANDEZ APRN) Current Patient Data: Labs: Laboratory Tests Test 12/29/20 15:33 Urine Collection Type Unknown Urine Color Yellow Urine Clarity Cloudy Urine pH 7.0 (<5.0-8.0) Urine Specific [place] 1.010 (1.000-1.030) Urine Protein 100 mg/dL (NEG-TRACE) Urine Glucose (UA) Negative mg/dL (NEG) Urine Ketones (Stick) Negative mg/dL (NEG) Urine Blood Trace (NEG) Urine Nitrite Negative (NEG) Urine Bilirubin Negative (NEG) Urine Urobilinogen Dipstick 0.2 mg/dL (0.2 mg/dL) Urine Leukocyte Esterase Moderate (NEG) Urine RBC 0 /HPF (0-2) Urine WBC 11-20 /HPF (0-4) Urine Bacteria Many /HPF (0-FEW) Vital Signs: Vital Signs Date Time Temp Pulse Resp B/P (MAP) Pulse Ox O2 Delivery O2 Flow Rate FiO2 12/29/20 15:00 98.4 91 18 188/107 93 Room Air 98.4 (HERBER HERNANDEZ APRN) EKG: EKG: [] (HERBER HERNANDEZ APRN) Radiology/Procedures: Radiology/Procedures: [] (HERBER HERNANDEZ APRN) Course & Med Decision Making: Course & Med Decision Making Pertinent Labs and Imaging studies reviewed. (See chart for details) This is a 75-year-old female patient presented to the ED today for suprapubic catheter change. This is a monthly process for her. She was unable to get an appointment at where she typically gets this changed. Suprapubic catheter was changed by the RN. UA was taken, positive for UTI. Daughter states patient has a history of chronic UTIs. Previous urine culture shows patient is susceptible to Cipro. Rx was sent to the pharmacy. Return precautions provided. Follow-up with her own PCP and urologist next week Patient's blood pressure was 188/107 heart rate of 91, patient reports she has not taken any of her blood pressure medicines all day today. She unfortunately does not remember the names of the medicines. She was given clonidine in the ED. Blood pressure will be rechecked prior to discharge and she will be discharged home with instructions to be compliant with her blood pressure medicine regimen. (HERBRE HERNANDEZ APRN) Course & Med Decision Making Vital Signs Date Time Temp Pulse Resp B/P (MAP) Pulse Ox O2 Delivery O2 Flow Rate FiO2 12/29/20 17:38 80 138/63 (88) 12/29/20 16:59 195/85 (121) 12/29/20 16:15 91 180/118 12/29/20 15:00 98.4 91 18 188/107 93 Room Air 98.4 I have reviewed and was available for consultation in the emergency department for this patient that was seen by midlevel provider. Agree with plan. Reviewed vitals as above, improved after clonidine Octavio Kate DO (OCTAVIO KATE DO) Lissa Disclaimer: Lissa Disclaimer: This electronic medical record was generated, in whole or in part, using a voice recognition dictation system. (HERBER HERNANDEZ APRN) Departure Departure Impression: Primary Impression: Encounter for suprapubic catheter care Additional Impressions: Urinary tract infection Qualified Codes: T83.511A - Infection and inflammatory reaction due to ind welling urethral catheter, initial encounter; N39.0 - Urinary tract infection, site not specified High blood pressure Qualified Codes: I10 - Essential (primary) hypertension Disposition: HOME / SELF CARE / HOMELESS Condition: STABLE Referrals: BASSAM DILLON MD (PCP) Follow-up with your primary care doctor and urologist next week Patient Instructions: Indwelling Urinary Catheter Care-Brief, Urinary Tract Infection Additional Instructions: Your suprapubic catheter was changed in the emergency room. Your urine was noted for infection. Please take the prescribed antibiotics until completed. Follow-up with your primary care doctor and urologist next week. Your blood pressure was high in the emergency room. Ensure you are taking your medicines as prescribed by your doctor Scripts Ciprofloxacin Hcl (CIPRO) 500 Mg Tablet 1 TAB PO BID for 7 Days, #14 TAB 0 Refills Prov: HERBER HERNANDEZ APRN 12/29/20 HERBER HERNANDEZ APRN Dec 29, 2020 16:07 OCTAVIO KATE DO Dec 30, 2020 06:08
[2020-12-29] MEDS ORDERED: CIPR500T94 PO (16:15)
[2020-12-29] MEDS ORDERED: cloNIDine HCL 0.1 MG TABLET PO ONE (16:15)
[2020-12-29 17:38] VITALS: BP 138/63
== END 2020-12-29 17:38 | disposition home or self-care (01) ==
LOC: ER 14:30
DX: T83.511A Infection and inflammatory reaction due to indwelling urethral catheter, initial encounter (principal); N39.0 Urinary tract infection, site not specified; I10 Essential (primary) hypertension; E11.9 Type 2 diabetes mellitus without complications; Z86.73 Personal history of transient ischemic attack (TIA), and cerebral infarction without residual deficits; Z88.8 Allergy status to other drugs, medicaments and biological substances; Y84.6 Urinary catheterization as the cause of abnormal reaction of the patient, or of later complication, without mention of misadventure at the time of the procedure
CPT/HCPCS: 81001; 87086; 99283; A4314

== ENCOUNTER 2021-04-01 23:51 | Emergency (ER) | payer MEDICARE ==
[~2021-04-01] VITALS: Ht 167.6 cm; Wt 81.8 kg
--- NOTE | 2021-04-02 00:03 | PHYS DOC ---
Past Medical History Past Medical History: CVA, Diabetes-Type II, Hypertension Additional Past Medical Histor: SUPRAPUBIC CATH Past Surgical History: Other Additional Past Surgical Histo: BILAT BKA Smoking Status: Never Smoker Alcohol Use: None Drug Use: None General Adult EDM: Chief Complaint: URINE CATHETER PROBLEM HPI: HPI: SincePatient is a 75-year-old female who presents to the emergency department for a clogged urinary catheter that started tonight. Family member states that they flush it twice but it is not draining. Patient denies any abdominal pain, nausea, vomiting, fevers. 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 Review of Systems: Review of Systems: Constitutional: See HPI GI: See HPI : See HPI Musculoskeletal: See HPI Heart Score: C/O Chest Pain: N/A Risk Factors: Risk Factors: DM, Current or recent (<one month) smoker, HTN, HLP, family history of CAD, obesity. Risk Scores: Score 0 - 3: 2.5% MACE over next 6 weeks - Discharge Home Score 4 - 6: 20.3% MACE over next 6 weeks - Admit for Clinical Observation Score 7 - 10: 72.7% MACE over next 6 weeks - Early Invasive Strategies Allergies: Allergies: Allergies Coded Allergies Type Severity Reaction Last Updated Verified lisinopril Allergy Severe cough 08/22/17 Yes Physical Exam: PE: Constitutional: Well developed, well nourished, no acute distress, non-toxic appearance. [] HENT: Normocephalic, atraumatic, bilateral external ears normal, oropharynx moist, no oral exudates, nose normal. [] Eyes: PERRL, EOMI, conjunctiva normal, no discharge. [] Neck: Normal range of motion, no stridor Cardiovascular:Heart rate regular rhythm, no murmur [] Lungs & Thorax: Bilateral breath sounds clear to auscultation [] Abdomen: Bowel sounds normal, soft, no tenderness, no masses, no pulsatile masses, suprapubic catheter in place, no surrounding signs of infection. [] Skin: Warm, dry, no erythema, no rash. [] Back: Normal range of motion Extremities: No tenderness, no cyanosis, no clubbing, ROM intact, no edema. [] Neurologic: Alert and oriented X 3, normal motor function, normal sensory function, no focal deficits noted. [] Psychologic: Affect normal, judgement normal, mood normal. [] EKG: EKG: [] Radiology/Procedures: Radiology/Procedures: [] Course & Med Decision Making: Course & Med Decision Making Pertinent Labs and Imaging studies reviewed. (See chart for details) [] Patient presents to the emergency department for a blocked urinary catheter. Patient was bladder scanned and it showed 183cc retained. Suprapubic catheter removed and a new one inserted. Patient tolerated procedure. Urine output noted. I discussed with patient all findings and diagnostic testing as well as the need to follow-up with PCP for further evaluation and treatment or return to the ER if any new or worsening symptoms. Strict return precautions were also discussed at length. Patient voiced understanding and agreement with the plan. Patient is hemodynamically stable at the time of disposition. Dragon Disclaimer: Dragon Disclaimer: This electronic medical record was generated, in whole or in part, using a voice recognition dictation system. Departure Departure Impression: Primary Impression: Blocked suprapubic catheter Qualified Codes: T83.090A - Other mechanical complication of cystostomy catheter, initial encounter Disposition: HOME / SELF CARE / HOMELESS Condition: GOOD Referrals: BASSAM DILLON MD (PCP) Patient Instructions: Suprapubic Catheter Replacement Additional Instructions: You were seen in the emergency department for a blocked urinary catheter. A new catheter was placed. You were noted to have urine output. Please follow-up with your primary care provider on Sunday regarding your ER visit. Please return to the emergency department if you develop abdominal pain, blood in your urine, intractable nausea or vomiting, decreased urine output, high fevers refractory to treatment. JAJA COHEN HOSE MAKER Apr 02, 2021 00:03
[2021-04-02 00:15] VITALS: BP 150/68
--- NOTE | 2021-04-02 00:16 | NUR ---
BLADDER SCAN PERFORMED BY [facility] 183ML OF FLUID
== END 2021-04-02 00:50 | disposition home or self-care (01) ==
LOC: ER 23:51
DX: T83.090A Other mechanical complication of cystostomy catheter, initial encounter (principal); E11.9 Type 2 diabetes mellitus without complications; I10 Essential (primary) hypertension; Z86.73 Personal history of transient ischemic attack (TIA), and cerebral infarction without residual deficits; Z88.6 Allergy status to analgesic agent; Y84.8 Other medical procedures as the cause of abnormal reaction of the patient, or of later complication, without mention of misadventure at the time of the procedure; Y92.89 Other specified places as the place of occurrence of the external cause
CPT/HCPCS: 51705; 99284